=== PATIENT | male | born 1960 | race Caucasian/White ===

== ENCOUNTER 2017-07-04 23:03 | Inpatient (IN) | payer MEDICAID ==
[2017-07-04] MEDS ORDERED: PROPOFOL 100 ML (23:15)
[2017-07-04] MEDS: ETOMIDATE 20 MG INJ IV (23:22)
[2017-07-04] MEDS: SUCCINYLCHOLINE CHLORIDE 100 MG/5 ML SYG IV (23:22)
[2017-07-04] MEDS: SODIUM CHLORIDE 0.9% 500 ML BAG IV* (23:25)
[2017-07-04] MEDS ORDERED: AMIODARONE 900 MG in DEXTROSE 5% 482 ML IV (23:30)
[2017-07-04] MEDS: VECURONIUM 100 MG in DEXTROSE 5% 100 ML IV (23:35)
[2017-07-04] MEDS: AMIODARONE 150MG/D5W BOLUS 100 ML IV (23:35)
[2017-07-04 23:56] LABS: ADD MAN DIFF? NO
[2017-07-04 23:59] LABS: WHITE BLOOD COUNT 19.6 10^3/ul (4.8-10.8)
[2017-07-04 23:59] LABS: BASOPHIL # 0.1 10^3/ul (0.0-0.1); BASOPHILS % 0.3 % (0.0-2.0); EOSINOPHILS # 0.5 10^3/ul (0.0-0.5); EOSINOPHILS % 2.3 % (0.0-7.0); HEMATOCRIT 39.5 % (42.0-52.0); LYMPHOCYTES # 2.5 10^3/ul (0.8-2.9); LYMPHOCYTES % 12.7 % (15.0-51.0); MEAN CORPUSCULAR HEMOGLOBIN 31.5 pg (29.0-33.0); MEAN CORPUSCULAR HGB CONC 32.9 g/dl (32.0-37.0); MEAN CORPUSCULAR VOLUME 95.6 fl (82.0-101.0); MEAN PLATELET VOLUME 9.7 fl (7.4-10.4); MONOCYTE # 0.8 10^3/ul (0.3-0.9); MONOCYTES % 3.8 % (0.0-11.0); NEUTROPHIL # 15.5 10^3/ul (1.6-7.5); NEUTROPHILS % 79.3 % (39.0-77.0); PLATELET COUNT 261 10^3/UL (140-415); RED BLOOD COUNT 4.13 10^6/ul (4.70-6.10); RED CELL DISTRIBUTION WIDTH 13.2 % (11.5-14.5)
[2017-07-05] MEDS ORDERED: NORepinephrine 8MG/250 ML BAG
[2017-07-05] MEDS ORDERED: AMIODARONE 150 MG INJ
[2017-07-05] MEDS ORDERED: ETOMIDATE 20 MG INJ
[2017-07-05] MEDS ORDERED: DEXTROSE 5% WATER 500 ML BAG
[2017-07-05] MEDS ORDERED: AMIODARONE 900 MG INJ
[2017-07-05] MEDS ORDERED: ROCURONIUM 50 MG INJ
[2017-07-05] MEDS ORDERED: SUCCINYLCHOLINE CHLORIDE 100 MG/5 ML SYG IV
[2017-07-05 00:19] LABS: ALANINE AMINOTRANSFERASE 159 IU/L (13-69); ALBUMIN 3.8 g/dl (3.3-4.9); ALBUMIN/GLOBULIN RATIO 1.22; ALKALINE PHOSPHATASE 60 IU/L (42-121); ANION GAP 17 (8-16); ASPARTATE AMINO TRANSFERASE 162 IU/L (15-46); BILIRUBIN,INDIRECT 0.2 mg/dl (0-1.1); BILIRUBIN,TOTAL 0.2 mg/dl (0.2-1.3); BLOOD UREA NITROGEN 15 mg/dl (7-20); CALCIUM 8.5 mg/dl (8.4-10.2); CARBON DIOXIDE 21 mmol/L (21-31); CHLORIDE 106 mmol/L (97-110); GLUCOSE 195 mg/dl (70-220); MAGNESIUM 1.9 mg/dl (1.7-2.5); PHOSPHORUS 7.3 mg/dl (2.5-4.9); POTASSIUM 3.5 mmol/L (3.5-5.1); SODIUM 140 mmol/L (135-144); TOTAL PROTEIN 6.9 g/dl (6.1-8.1)
[2017-07-05] MEDS: PROPOFOL 100 ML IV ×4 (00:27→20:28)
[2017-07-05] MEDS: SOD CHLORIDE 0.9% 100 ML (00:27)
[2017-07-05] MEDS: IOHEXOL 300MG/ML 150 ML BTL (00:27)
[2017-07-05] MEDS: SOD CHLORIDE 0.9% 1,000 ML IV ×3 (00:30→19:02)
[2017-07-05 00:37] LABS: INR 1.17; PROTIME 15.1 Sec (11.9-14.9); PT RATIO 1.2
[2017-07-05 00:38] LABS: PARTIAL THROMBOPLASTIN TIME 31.3 Sec (25.0-35.0)
[2017-07-05 01:38] LABS: ADD UMIC YES; UR AMORPHOUS CRYSTAL FEW /HPF (NONE SEEN); UR ASCORBIC ACID NEGATIVE (NEGATIVE); UR BACTERIA FEW /HPF (NONE SEEN); UR BILIRUBIN (Dip) NEGATIVE (NEGATIVE); UR BLOOD (Dip) 1+ mg/dL (NEGATIVE); UR CLARITY CLOUDY (CLEAR); UR COLOR YELLOW (YELLOW); UR GLUCOSE (Dip) NEGATIVE (NEGATIVE); UR KETONES (Dip) NEGATIVE (NEGATIVE); UR LEUKOCYTE ESTERASE (Dip) NEGATIVE Leu/ul (NEGATIVE); UR MUCUS MODERATE /HPF (NONE SEEN); UR NITRITE (Dip) NEGATIVE (NEGATIVE); UR RBC 17 /HPF (0-5); UR SPECIFIC GRAVITY (Dip) 1.019 (1.003-1.030); UR TOTAL PROTEIN (Dip) 2+ mg/dl (NEGATIVE); UR UROBILINOGEN (Dip) NEGATIVE (NEGATIVE); UR WBC 1 /HPF (0-5)
[2017-07-05 01:39] LABS: AADO2 Arterial 271.9 mmHg (7.0-24.0); Allen Test ACCEPTAB; Arterial Base Excess -6.7 mmol/L (-3.0-3); Arterial Blood Gas Oxygen Sat 97.2 mmHG (95.0-98.0); Arterial COHb 0.5 % (0.0-3.0); Arterial Fraction of Oxyhgb 96.6 % (93.0-99.0); Arterial MetHb 0.1 % (0.0-1.5); Arterial Total Hemglobin 14.1 g/dl (12.0-18.0); Arterial pCO2 44.2 mmhg (35-45); MODE VENT - VC+; Site Right Radial
[2017-07-05] MEDS: INSULIN HUMAN REGULAR 100 UNIT in SOD CHLORIDE 0.9% 99 ML IV ×2 (02:06→06:51)
[2017-07-05 03:10] LABS: AADO2 Arterial 250.7 mmHg (7.0-24.0); Arterial Base Excess -4.2 mmol/L (-3.0-3); Arterial Blood Gas Oxygen Sat 98.1 mmHG (95.0-98.0); Arterial COHb 0.6 % (0.0-3.0); Arterial Fraction of Oxyhgb 97.2 % (93.0-99.0); Arterial HCO3 24.6 mmol/L (22.0-26.0); Arterial MetHb 0.3 % (0.0-1.5); Arterial Total Hemglobin 16.2 g/dl (12.0-18.0); Arterial pCO2 53.7 mmhg (35-45); MODE VENT - AC/VC+; Site Right Brachial; Temperature 34.5 C
[2017-07-05] MEDS: ASPIRIN 300 MG SUPP PR (03:10)
[2017-07-05 03:23] LABS: MAGNESIUM 1.9 mg/dl (1.7-2.5)
[2017-07-05] MEDS: HEPARIN 5,000 UNIT/0.5 ML VIAL IV (03:23)
[2017-07-05] MEDS ORDERED: NITROGLYCERIN (IC) 100 MCG/ML INJ (03:24)
[2017-07-05] MEDS ORDERED: LIDOCAINE 1% (MDV) 20 ML INJ (03:24)
[2017-07-05] MEDS ORDERED: MIDAZOLAM 1 MG/ML 2 ML INJ (03:24)
[2017-07-05] MEDS ORDERED: FENTAnyl 50 MCG/ML VIAL (03:24)
[2017-07-05] MEDS ORDERED: IODIXANOL LOCM 100 ML BTL ×2 (03:24→04:47)
[2017-07-05] MEDS ORDERED: VERAPAMIL 5 MG INJ (03:24)
[2017-07-05] MEDS: hydrALAzine 20 MG INJ IV (03:25)
[2017-07-05 03:32] LABS: ADD MAN DIFF? NO
[2017-07-05 03:45] LABS: CREATINE KINASE 1082 IU/L (23-200)
[2017-07-05 03:47] LABS: CARBON DIOXIDE 23 mmol/L (21-31); CHLORIDE 104 mmol/L (97-110)
[2017-07-05 03:48] LABS: ALANINE AMINOTRANSFERASE 174 IU/L (13-69); ALBUMIN 4.5 g/dl (3.3-4.9); ALBUMIN/GLOBULIN RATIO 1.45; ALKALINE PHOSPHATASE 81 IU/L (42-121); ANION GAP 20 (8-16); ASPARTATE AMINO TRANSFERASE 227 IU/L (15-46); BILIRUBIN,INDIRECT 0.4 mg/dl (0-1.1); BILIRUBIN,TOTAL 0.4 mg/dl (0.2-1.3); GLUCOSE 186 mg/dl (70-220); TOTAL PROTEIN 7.6 g/dl (6.1-8.1)
[2017-07-05 03:57] LABS: BLOOD UREA NITROGEN 14 mg/dl (7-20); CALCIUM 8.4 mg/dl (8.4-10.2); CREATININE 0.91 mg/dl (0.61-1.24); POTASSIUM 3.8 mmol/L (3.5-5.1); SODIUM 143 mmol/L (135-144)
[2017-07-05 03:58] LABS: CK INDEX 8.6
[2017-07-05 04:09] LABS: WHITE BLOOD COUNT 15.1 10^3/ul (4.8-10.8)
[2017-07-05 04:09] LABS: BASOPHIL # 0.1 10^3/ul (0.0-0.1); BASOPHILS % 0.3 % (0.0-2.0); EOSINOPHILS # 0.2 10^3/ul (0.0-0.5); EOSINOPHILS % 1.3 % (0.0-7.0); HEMATOCRIT 45.2 % (42.0-52.0); HEMOGLOBIN 14.9 g/dl (14.0-18.0); LYMPHOCYTES # 1.9 10^3/ul (0.8-2.9); LYMPHOCYTES % 12.6 % (15.0-51.0); MEAN CORPUSCULAR HEMOGLOBIN 31.6 pg (29.0-33.0); MEAN CORPUSCULAR VOLUME 95.8 fl (82.0-101.0); MEAN PLATELET VOLUME 10.1 fl (7.4-10.4); MONOCYTE # 0.7 10^3/ul (0.3-0.9); MONOCYTES % 4.8 % (0.0-11.0); NEUTROPHIL # 12.1 10^3/ul (1.6-7.5); NEUTROPHILS % 80.3 % (39.0-77.0); PLATELET COUNT 294 10^3/UL (140-415); RED BLOOD COUNT 4.72 10^6/ul (4.70-6.10); RED CELL DISTRIBUTION WIDTH 13.4 % (11.5-14.5)
[2017-07-05 04:20] LABS: AADO2 Arterial 225.9 mmHg (7.0-24.0); Arterial Base Excess -6.1 mmol/L (-3.0-3); Arterial Blood Gas Oxygen Sat 98.4 mmHG (95.0-98.0); Arterial COHb 0.4 % (0.0-3.0); Arterial Fraction of Oxyhgb 97.7 % (93.0-99.0); Arterial HCO3 21.5 mmol/L (22.0-26.0); Arterial MetHb 0.3 % (0.0-1.5); Arterial Total Hemglobin 15.9 g/dl (12.0-18.0); Arterial pCO2 50.2 mmhg (35-45); MODE VENT - AC/VC+; Site A-Line
[2017-07-05] MEDS ORDERED: TICAGRELOR 90 MG TABLET (04:33)
[2017-07-05] MEDS: EPTIFIBATIDE 100 ML IV (04:42)
[2017-07-05] MEDS ORDERED: NA BICARBONATE 8.4% 50 ML SYG (04:47)
[2017-07-05] MEDS ORDERED: IOHEXOL 350MG/ML 50 ML BTL (04:47)
[2017-07-05 04:49] LABS: AADO2 Arterial 256.4 mmHg (7.0-24.0); Arterial Base Excess 1.6 mmol/L (-3.0-3); Arterial Blood Gas Oxygen Sat 97.6 mmHG (95.0-98.0); Arterial COHb 0.3 % (0.0-3.0); Arterial Fraction of Oxyhgb 97.1 % (93.0-99.0); Arterial HCO3 27.8 mmol/L (22.0-26.0); Arterial MetHb 0.2 % (0.0-1.5); Arterial Total Hemglobin 14.3 g/dl (12.0-18.0); Arterial pCO2 49.6 mmhg (35-45); MODE VENT - AC; Site A-Line
[2017-07-05] MEDS ORDERED: DOPamine-D5W 1.6 MG/ML 250 ML (05:46)
[2017-07-05] MEDS ORDERED: PANTOPRAZOLE 40 MG INJ IV (06:00)
[2017-07-05] MEDS ORDERED: NORepinephrine 8MG/250 ML (PMX 250 ML (06:16)
[2017-07-05] MEDS: SOD CHLORIDE 0.9% 500 ML IV ×2 (06:33→11:06)
[2017-07-05] MEDS: TICAGRELOR 90 MG TABLET PO ×4 (06:35→21:05)
[2017-07-05] MEDS ORDERED: EPTIFIBATIDE 100 ML IV (06:39)
[2017-07-05] MEDS ORDERED: EPTIFIBATIDE 10 ML (06:39)
[2017-07-05] MEDS: PANTOPRAZOLE 40 MG INJ IV ×2 (06:43→18:16)
[2017-07-05] MEDS: MAGNESIUM SULFATE 2 GM/50 ML 50 ML IVPB (06:46)
[2017-07-05 06:58] LABS: PROTIME 15.4 Sec (11.9-14.9); PT RATIO 1.2
[2017-07-05] MEDS ORDERED: DEXTROSE 50% 50 ML SYRINGE IV ×2 (07:00)
[2017-07-05] MEDS: ACCU-CHEK XX ×17 (07:11→23:00)
[2017-07-05 07:25] LABS: PARTIAL THROMBOPLASTIN TIME 136.5 Sec (25.0-35.0)
[2017-07-05] MEDS: NORepinephrine 8MG/250 ML (PMX 250 ML IV (07:26)
[2017-07-05 09:30] LABS: AADO2 Arterial 176.2 mmHg (7.0-24.0); Arterial Base Excess -3.6 mmol/L (-3.0-3); Arterial Blood Gas Oxygen Sat 99.1 mmHG (95.0-98.0); Arterial COHb 0.3 % (0.0-3.0); Arterial Fraction of Oxyhgb 98.7 % (93.0-99.0); Arterial MetHb 0.1 % (0.0-1.5); Arterial Total Hemglobin 14.8 g/dl (12.0-18.0); Arterial pCO2 36.4 mmhg (35-45); MODE VENT - AC; Site A-Line; Temperature 33.7 C
[2017-07-05] MEDS ORDERED: ATROPINE 1 MG/10 ML SYRINGE (09:30)
[2017-07-05] MEDS: ASPIRIN (EC) 81 MG TAB PO (10:08)
[2017-07-05 10:51] LABS: ADD MAN DIFF? NO
[2017-07-05 10:54] LABS: WHITE BLOOD COUNT 10.2 10^3/ul (4.8-10.8)
[2017-07-05 10:54] LABS: BASOPHILS % 0.2 % (0.0-2.0); EOSINOPHILS # 0.1 10^3/ul (0.0-0.5); EOSINOPHILS % 0.8 % (0.0-7.0); HEMATOCRIT 38.9 % (42.0-52.0); HEMOGLOBIN 13.5 g/dl (14.0-18.0); LYMPHOCYTES # 1.3 10^3/ul (0.8-2.9); LYMPHOCYTES % 12.5 % (15.0-51.0); MEAN CORPUSCULAR HEMOGLOBIN 31.8 pg (29.0-33.0); MEAN CORPUSCULAR HGB CONC 34.7 g/dl (32.0-37.0); MEAN CORPUSCULAR VOLUME 91.7 fl (82.0-101.0); MEAN PLATELET VOLUME 9.8 fl (7.4-10.4); MONOCYTE # 0.6 10^3/ul (0.3-0.9); MONOCYTES % 5.4 % (0.0-11.0); NEUTROPHIL # 8.3 10^3/ul (1.6-7.5); NEUTROPHILS % 80.9 % (39.0-77.0); PLATELET COUNT 261 10^3/UL (140-415); RED BLOOD COUNT 4.24 10^6/ul (4.70-6.10); RED CELL DISTRIBUTION WIDTH 13.5 % (11.5-14.5)
[2017-07-05 11:13] LABS: INR 1.09; PROTIME 14.3 Sec (11.9-14.9); PT RATIO 1.1
[2017-07-05 11:20] LABS: LACTIC ACID 3.3 mmol/L (0.5-2.0)
[2017-07-05 11:23] LABS: ALANINE AMINOTRANSFERASE 170 IU/L (13-69); ALBUMIN 3.4 g/dl (3.3-4.9); ASPARTATE AMINO TRANSFERASE 509 IU/L (15-46); BILIRUBIN,INDIRECT 0.3 mg/dl (0-1.1); BILIRUBIN,TOTAL 0.3 mg/dl (0.2-1.3); BLOOD UREA NITROGEN 15 mg/dl (7-20); CARBON DIOXIDE 21 mmol/L (21-31); CHLORIDE 109 mmol/L (97-110); GLUCOSE 126 mg/dl (70-220); HDL CHOLESTEROL 54 mg/dl (28-71); MAGNESIUM 3.1 mg/dl (1.7-2.5); SODIUM 141 mmol/L (135-144)
[2017-07-05 11:26] LABS: ALBUMIN/GLOBULIN RATIO 1.41; ALKALINE PHOSPHATASE 66 IU/L (42-121); ANION GAP 15 (8-16); CHOL/HDL RATIO 4.1 RATIO; CHOLESTEROL 226 mg/dl (100-200); CREATININE 0.61 mg/dl (0.61-1.24); LDL CHOLESTEROL,CALCULATED 126 mg/dl; POTASSIUM 3.6 mmol/L (3.5-5.1); TOTAL PROTEIN 5.8 g/dl (6.1-8.1); TRIGLYCERIDES 232 mg/dl (0-149)
[2017-07-05 11:46] LABS: CK-MB > 800.00 ng/ml (0.0-2.4)
[2017-07-05 12:12] LABS: CREATINE KINASE 7570 IU/L (23-200)
[2017-07-05] MEDS: FENTAnyl (DRIP) 1000 mcg/100mL 100 ML IV (15:18)
[2017-07-05 18:16] LABS: AADO2 Arterial 179.2 mmHg (7.0-24.0); Allen Test ACCEPTAB; Arterial Base Excess -5.5 mmol/L (-3.0-3); Arterial Blood Gas Oxygen Sat 97.2 mmHG (95.0-98.0); Arterial COHb 0.3 % (0.0-3.0); Arterial Fraction of Oxyhgb 96.8 % (93.0-99.0); Arterial HCO3 19.5 mmol/L (22.0-26.0); Arterial MetHb 0.1 % (0.0-1.5); Arterial Total Hemglobin 14.1 g/dl (12.0-18.0); Arterial pCO2 29.5 mmhg (35-45); MODE VENT - AC; Site Right Radial; Temperature 32.1 C
[2017-07-05 20:16] LABS: ADD MAN DIFF? NO
[2017-07-05 20:19] LABS: BASOPHILS % 0.2 % (0.0-2.0); EOSINOPHILS % 0.2 % (0.0-7.0); HEMATOCRIT 42.3 % (42.0-52.0); HEMOGLOBIN 14.2 g/dl (14.0-18.0); LYMPHOCYTES # 0.8 10^3/ul (0.8-2.9); LYMPHOCYTES % 6.1 % (15.0-51.0); MEAN CORPUSCULAR HEMOGLOBIN 31.5 pg (29.0-33.0); MEAN CORPUSCULAR HGB CONC 33.6 g/dl (32.0-37.0); MEAN CORPUSCULAR VOLUME 93.8 fl (82.0-101.0); MEAN PLATELET VOLUME 9.9 fl (7.4-10.4); MONOCYTES % 7.7 % (0.0-11.0); NEUTROPHILS % 85.4 % (39.0-77.0); PLATELET COUNT 238 10^3/UL (140-415); RED BLOOD COUNT 4.51 10^6/ul (4.70-6.10); RED CELL DISTRIBUTION WIDTH 13.5 % (11.5-14.5)
[2017-07-05 20:19] LABS: WHITE BLOOD COUNT 12.9 10^3/ul (4.8-10.8)
[2017-07-05 20:41] LABS: INR 1.03; PARTIAL THROMBOPLASTIN TIME 30.9 Sec (25.0-35.0); PROTIME 13.6 Sec (11.9-14.9); PT RATIO 1.1
[2017-07-05 21:21] LABS: AMYLASE 98 U/L (11-123); ANION GAP 8 (8-16); BLOOD UREA NITROGEN 15 mg/dl (7-20); CALCIUM 8.2 mg/dl (8.4-10.2); CARBON DIOXIDE 26 mmol/L (21-31); CHLORIDE 107 mmol/L (97-110); CREATININE 0.62 mg/dl (0.61-1.24); GLUCOSE 131 mg/dl (70-220); LIPASE 21 U/L (23-300); MAGNESIUM 2.3 mg/dl (1.7-2.5); PHOSPHORUS 3.7 mg/dl (2.5-4.9); POTASSIUM 3.4 mmol/L (3.5-5.1); SODIUM 138 mmol/L (135-144)
[2017-07-05 21:59] LABS: HEMOGLOBIN A1C 5.8 % (0-5.9)
[2017-07-05] MEDS: MEPERIDINE 25 MG INJ IV (23:19)
[2017-07-05] MEDS ORDERED: ACETAMINOPHEN 650MG/20.3ML CUP PO (23:30)
[2017-07-05] MEDS ORDERED: MEPERIDINE 25 MG INJ IV (23:30)
[2017-07-05] MEDS ORDERED: ACETAMINOPHEN 650 MG SUPP PR (23:30)
[2017-07-05 23:59] LABS: CREATINE KINASE 8762 IU/L (23-200)
[2017-07-05 23:59] LABS: CK-MB > 800.00 ng/ml (0.0-2.4)
[2017-07-06] MEDS: OCULAR LUBRICANT 3.5 GM OPH OINT BOTH EYES ×5 (00:11→17:16)
[2017-07-06] MEDS: ARTIFICIAL TEARS 15 ML OPH BOTH EYES ×4 (00:11→17:15)
[2017-07-06] MEDS: ACCU-CHEK XX ×21 (01:00→20:00)
[2017-07-06] MEDS: PROPOFOL 100 ML IV ×5 (01:05→20:16)
[2017-07-06] MEDS: SOD CHLORIDE 0.9% 1,000 ML IV ×3 (03:05→18:21)
[2017-07-06] MEDS: EPTIFIBATIDE 100 ML IV (03:37)
[2017-07-06 04:40] LABS: AADO2 Arterial 169.8 mmHg (7.0-24.0); Allen Test ACCEPTAB; Arterial Blood Gas Oxygen Sat 97.7 mmHG (95.0-98.0); Arterial COHb 0.3 % (0.0-3.0); Arterial Fraction of Oxyhgb 97.3 % (93.0-99.0); Arterial HCO3 20.1 mmol/L (22.0-26.0); Arterial MetHb 0.1 % (0.0-1.5); Arterial Total Hemglobin 13.5 g/dl (12.0-18.0); Arterial pCO2 30.2 mmhg (35-45); MODE VENT - AC; Site Right Radial; Temperature 32.1 C
[2017-07-06] MEDS: PANTOPRAZOLE 40 MG INJ IV ×2 (05:03→17:19)
[2017-07-06 05:12] LABS: ADD MAN DIFF? NO
[2017-07-06 05:15] LABS: BASOPHILS % 0.2 % (0.0-2.0); EOSINOPHILS % 0.4 % (0.0-7.0); HEMATOCRIT 36.1 % (42.0-52.0); HEMOGLOBIN 12.1 g/dl (14.0-18.0); LYMPHOCYTES # 0.7 10^3/ul (0.8-2.9); LYMPHOCYTES % 7.3 % (15.0-51.0); MEAN CORPUSCULAR HEMOGLOBIN 31.3 pg (29.0-33.0); MEAN CORPUSCULAR HGB CONC 33.5 g/dl (32.0-37.0); MEAN CORPUSCULAR VOLUME 93.3 fl (82.0-101.0); MEAN PLATELET VOLUME 10.1 fl (7.4-10.4); MONOCYTE # 0.4 10^3/ul (0.3-0.9); MONOCYTES % 3.8 % (0.0-11.0); NEUTROPHIL # 8.5 10^3/ul (1.6-7.5); PLATELET COUNT 223 10^3/UL (140-415); POSITIVE DIFF @See below; RED BLOOD COUNT 3.87 10^6/ul (4.70-6.10); RED CELL DISTRIBUTION WIDTH 13.3 % (11.5-14.5)
[2017-07-06 05:15] LABS: WHITE BLOOD COUNT 9.7 10^3/ul (4.8-10.8)
[2017-07-06] MEDS: FENTAnyl (DRIP) 1000 mcg/100mL 100 ML IV ×2 (06:33→17:23)
[2017-07-06] MEDS: INSULIN HUMAN REGULAR 100 UNIT in SOD CHLORIDE 0.9% 99 ML IV (07:04)
[2017-07-06 07:21] LABS: ALANINE AMINOTRANSFERASE 169 IU/L (13-69); ALBUMIN 3.3 g/dl (3.3-4.9); ALBUMIN/GLOBULIN RATIO 1.26; ALKALINE PHOSPHATASE 58 IU/L (42-121); ANION GAP 12 (8-16); ASPARTATE AMINO TRANSFERASE 489 IU/L (15-46); B-TYPE NATRIURETIC PEPTIDE 1320 PG/ML (0-125); BILIRUBIN,INDIRECT 0.3 mg/dl (0-1.1); BILIRUBIN,TOTAL 0.3 mg/dl (0.2-1.3); BLOOD UREA NITROGEN 15 mg/dl (7-20); CARBON DIOXIDE 25 mmol/L (21-31); CHLORIDE 108 mmol/L (97-110); CHOL/HDL RATIO 3.7 RATIO; CHOLESTEROL 182 mg/dl (100-200); CREATININE 0.65 mg/dl (0.61-1.24); GLUCOSE 111 mg/dl (70-220); HDL CHOLESTEROL 48 mg/dl (28-71); LDL CHOLESTEROL,CALCULATED 102 mg/dl; POTASSIUM 3.5 mmol/L (3.5-5.1); SODIUM 141 mmol/L (135-144); TOTAL PROTEIN 5.9 g/dl (6.1-8.1); TRIGLYCERIDES 161 mg/dl (0-149)
[2017-07-06 07:48] LABS: FREE T4 (FREE THYROXINE) 1.49 ng/dl (0.64-1.79)
[2017-07-06 07:55] LABS: MAGNESIUM 2.2 mg/dl (1.7-2.5)
[2017-07-06] MEDS: ASPIRIN (EC) 81 MG TAB PO (08:12)
[2017-07-06] MEDS: TICAGRELOR 90 MG TABLET PO ×2 (08:14→20:36)
[2017-07-06 08:15] LABS: Arterial Base Excess -2.6 mmol/L (-3.0-3); Arterial COHb 0.3 % (0.0-3.0); Arterial Fraction of Oxyhgb 95.5 % (93.0-99.0); Arterial HCO3 22.6 mmol/L (22.0-26.0); Arterial MetHb 0.2 % (0.0-1.5); Arterial Total Hemglobin 12.6 g/dl (12.0-18.0); MODE VENT - AC; Site Right Brachial; Temperature 34.3 C
[2017-07-06] MEDS: MEPERIDINE 25 MG INJ IV ×2 (08:21→12:52)
[2017-07-06 08:24] LABS: CREATINE KINASE 8873 IU/L (23-200)
[2017-07-06 08:29] LABS: CK-MB > 800.00 ng/ml (0.0-2.4)
[2017-07-06] MEDS: VECURONIUM 10 MG VIAL IV ×2 (10:00→10:27)
[2017-07-06] MEDS: ENOXAPARIN 80 MG/0.8 ML SYG SC ×2 (10:04→20:36)
[2017-07-06 12:28] LABS: ADD MAN DIFF? NO
[2017-07-06 12:31] LABS: ABNORMAL IP MESSAGE 1; BASOPHILS % 0.2 % (0.0-2.0); EOSINOPHILS # 0.1 10^3/ul (0.0-0.5); EOSINOPHILS % 0.8 % (0.0-7.0); HEMATOCRIT 34.1 % (42.0-52.0); HEMOGLOBIN 11.6 g/dl (14.0-18.0); LYMPHOCYTES # 0.5 10^3/ul (0.8-2.9); LYMPHOCYTES % 5.8 % (15.0-51.0); MEAN CORPUSCULAR HEMOGLOBIN 31.8 pg (29.0-33.0); MEAN CORPUSCULAR VOLUME 93.4 fl (82.0-101.0); MONOCYTE # 0.2 10^3/ul (0.3-0.9); NEUTROPHIL # 8.2 10^3/ul (1.6-7.5); PLATELET COUNT 180 10^3/UL (140-415); POSITIVE DIFF @See below; RED BLOOD COUNT 3.65 10^6/ul (4.70-6.10); RED CELL DISTRIBUTION WIDTH 13.5 % (11.5-14.5)
[2017-07-06] MEDS: CEFEPIME 1GM/50 ML (PMX) 50 ML IVPB ×2 (12:42→22:27)
[2017-07-06 12:50] LABS: AMYLASE 153 U/L (11-123); ANION GAP 11 (8-16); BLOOD UREA NITROGEN 14 mg/dl (7-20); CALCIUM 7.9 mg/dl (8.4-10.2); CARBON DIOXIDE 24 mmol/L (21-31); CHLORIDE 107 mmol/L (97-110); CREATININE 0.64 mg/dl (0.61-1.24); GLUCOSE 106 mg/dl (70-220); LIPASE 86 U/L (23-300); PHOSPHORUS 3.9 mg/dl (2.5-4.9); POTASSIUM 3.2 mmol/L (3.5-5.1); SODIUM 139 mmol/L (135-144)
[2017-07-06 12:58] LABS: INR 1.27; PROTIME 16.1 Sec (11.9-14.9); PT RATIO 1.3
[2017-07-06 12:59] LABS: PARTIAL THROMBOPLASTIN TIME 47.3 Sec (25.0-35.0)
[2017-07-06 13:04] LABS: BAND NEUTROPHILS #M 2.3 10^3/ul (0.0-0.6); BAND NEUTROPHILS % (M) 26 % (0-4); LYMPHOCYTES #M 2.1 10^3/ul (0.8-2.9); LYMPHOCYTES % (M) 24 % (15-51); MONOCYTE #M 0.1 10^3/ul (0.3-0.9); MONOCYTES % (M) 2 % (0-11); PLATELET ESTIMATE NORMAL; SEG NEUT #M 4.5 10^3/ul (1.7-7.5); SEGMENTED NEUTROPHILS (M) % 48 % (39-77); SMUDGE%M 7 % (0-0)
[2017-07-06] MEDS: ACETAMINOPHEN 650MG/20.3ML CUP PO ×2 (13:25→18:16)
[2017-07-06 15:10] LABS: AADO2 Arterial 159.9 mmHg (7.0-24.0); Allen Test ACCEPTAB; Arterial Base Excess -4.4 mmol/L (-3.0-3); Arterial Blood Gas Oxygen Sat 94.4 mmHG (95.0-98.0); Arterial COHb 0.3 % (0.0-3.0); Arterial HCO3 21.2 mmol/L (22.0-26.0); Arterial MetHb 0.1 % (0.0-1.5); Arterial Total Hemglobin 12.5 g/dl (12.0-18.0); Arterial pCO2 40.5 mmhg (35-45); MODE VENT - AC; Site Right Radial
[2017-07-06 18:27] LABS: ADD MAN DIFF? NO
[2017-07-06 18:29] LABS: WHITE BLOOD COUNT 8.9 10^3/ul (4.8-10.8)
[2017-07-06 18:29] LABS: BASOPHILS % 0.3 % (0.0-2.0); EOSINOPHILS # 0.1 10^3/ul (0.0-0.5); EOSINOPHILS % 0.7 % (0.0-7.0); HEMATOCRIT 34.8 % (42.0-52.0); HEMOGLOBIN 11.7 g/dl (14.0-18.0); LYMPHOCYTES # 0.6 10^3/ul (0.8-2.9); LYMPHOCYTES % 6.7 % (15.0-51.0); MEAN CORPUSCULAR HEMOGLOBIN 31.9 pg (29.0-33.0); MEAN CORPUSCULAR HGB CONC 33.6 g/dl (32.0-37.0); MEAN CORPUSCULAR VOLUME 94.8 fl (82.0-101.0); MEAN PLATELET VOLUME 10.3 fl (7.4-10.4); MONOCYTE # 0.3 10^3/ul (0.3-0.9); MONOCYTES % 3.4 % (0.0-11.0); NEUTROPHIL # 7.9 10^3/ul (1.6-7.5); NEUTROPHILS % 88.7 % (39.0-77.0); PLATELET COUNT 189 10^3/UL (140-415); POSITIVE DIFF @See below; RED BLOOD COUNT 3.67 10^6/ul (4.70-6.10); RED CELL DISTRIBUTION WIDTH 13.6 % (11.5-14.5)
[2017-07-06 18:49] LABS: AMYLASE 150 U/L (11-123); ANION GAP 12 (8-16); BLOOD UREA NITROGEN 14 mg/dl (7-20); CALCIUM 7.7 mg/dl (8.4-10.2); CARBON DIOXIDE 23 mmol/L (21-31); CHLORIDE 107 mmol/L (97-110); GLUCOSE 105 mg/dl (70-220); LIPASE 52 U/L (23-300); MAGNESIUM 1.9 mg/dl (1.7-2.5); PHOSPHORUS 4.5 mg/dl (2.5-4.9); POTASSIUM 4.6 mmol/L (3.5-5.1); SODIUM 137 mmol/L (135-144)
[2017-07-06 19:13] LABS: INR 1.24; PROTIME 15.8 Sec (11.9-14.9); PT RATIO 1.2
[2017-07-06 19:14] LABS: PARTIAL THROMBOPLASTIN TIME 37.6 Sec (25.0-35.0)
[2017-07-06] MEDS: LORAZEPAM 2 MG INJ IV (22:27)
[2017-07-06] MEDS ORDERED: ACETAMINOPHEN 650 MG SUPP PR (23:30)
[2017-07-07] MEDS: PROPOFOL 100 ML IV ×4 (01:01→20:23)
[2017-07-07] MEDS: FENTAnyl (DRIP) 1000 mcg/100mL 100 ML IV ×2 (04:13→09:20)
[2017-07-07 05:08] LABS: ADD MAN DIFF? NO
[2017-07-07] MEDS: SOD CHLORIDE 0.9% 1,000 ML IV ×2 (05:21→18:31)
[2017-07-07] MEDS: PANTOPRAZOLE 40 MG INJ IV ×2 (05:21→18:31)
[2017-07-07 05:22] LABS: ABNORMAL IP MESSAGE 1; BASOPHILS % 0.4 % (0.0-2.0); EOSINOPHILS # 0.1 10^3/ul (0.0-0.5); EOSINOPHILS % 0.6 % (0.0-7.0); HEMATOCRIT 30.9 % (42.0-52.0); HEMOGLOBIN 10.5 g/dl (14.0-18.0); LYMPHOCYTES # 0.8 10^3/ul (0.8-2.9); LYMPHOCYTES % 10.1 % (15.0-51.0); MEAN CORPUSCULAR HEMOGLOBIN 32.2 pg (29.0-33.0); MEAN CORPUSCULAR VOLUME 94.8 fl (82.0-101.0); MEAN PLATELET VOLUME 10.9 fl (7.4-10.4); MONOCYTE # 0.3 10^3/ul (0.3-0.9); MONOCYTES % 3.4 % (0.0-11.0); NEUTROPHIL # 6.9 10^3/ul (1.6-7.5); PLATELET COUNT 185 10^3/UL (140-415); POSITIVE DIFF @See below; RED BLOOD COUNT 3.26 10^6/ul (4.70-6.10); RED CELL DISTRIBUTION WIDTH 13.9 % (11.5-14.5)
[2017-07-07 05:22] LABS: WHITE BLOOD COUNT 8.1 10^3/ul (4.8-10.8)
[2017-07-07 06:07] LABS: ALANINE AMINOTRANSFERASE 121 IU/L (13-69); ALBUMIN 2.9 g/dl (3.3-4.9); ALBUMIN/GLOBULIN RATIO 1.03; ALKALINE PHOSPHATASE 61 IU/L (42-121); ANION GAP 9 (8-16); ASPARTATE AMINO TRANSFERASE 229 IU/L (15-46); BILIRUBIN,INDIRECT 0.2 mg/dl (0-1.1); BILIRUBIN,TOTAL 0.2 mg/dl (0.2-1.3); BLOOD UREA NITROGEN 12 mg/dl (7-20); CALCIUM 7.9 mg/dl (8.4-10.2); CARBON DIOXIDE 24 mmol/L (21-31); CHLORIDE 107 mmol/L (97-110); GLUCOSE 122 mg/dl (70-220); MAGNESIUM 1.8 mg/dl (1.7-2.5); POTASSIUM 3.3 mmol/L (3.5-5.1); SODIUM 137 mmol/L (135-144); TOTAL PROTEIN 5.7 g/dl (6.1-8.1)
[2017-07-07 06:15] LABS: B-TYPE NATRIURETIC PEPTIDE 1680 PG/ML (0-125)
[2017-07-07 06:49] LABS: CK INDEX 3.8; CREATINE KINASE 2500 IU/L (23-200)
[2017-07-07] MEDS: POTASSIUM CHLORIDE 20 MEQ POWDER FOR ORAL SOLN NGT (09:18)
[2017-07-07] MEDS: FUROSEMIDE 20 MG INJ IV (09:18)
[2017-07-07] MEDS: TICAGRELOR 90 MG TABLET PO ×2 (09:19→20:24)
[2017-07-07] MEDS: ASPIRIN (EC) 81 MG TAB PO (09:21)
[2017-07-07] MEDS: CEFEPIME 1GM/50 ML (PMX) 50 ML IVPB ×2 (09:21→20:23)
[2017-07-07] MEDS: ENOXAPARIN 80 MG/0.8 ML SYG SC ×2 (09:21→20:25)
[2017-07-07] MEDS: MAGNESIUM SULFATE 3 GM in DEXTROSE 5% 100 ML IVPB (10:33)
[2017-07-07] MEDS ORDERED: NORepinephrine 8MG/250 ML (PMX 250 ML (15:09)
[2017-07-07] MEDS: LORAZEPAM 2 MG INJ IV (15:47)
[2017-07-07] MEDS: ATORVASTATIN 20 MG TAB PO (20:23)
[2017-07-08] MEDS: SOD CHLORIDE 0.9% 1,000 ML IV (01:42)
[2017-07-08] MEDS: FENTAnyl (DRIP) 1000 mcg/100mL 100 ML IV ×2 (01:52→11:01)
[2017-07-08] MEDS: PANTOPRAZOLE 40 MG INJ IV ×2 (05:05→18:02)
[2017-07-08 05:23] LABS: ADD MAN DIFF? NO
[2017-07-08 05:27] LABS: WHITE BLOOD COUNT 7.4 10^3/ul (4.8-10.8)
[2017-07-08 05:27] LABS: BASOPHILS % 0.4 % (0.0-2.0); EOSINOPHILS # 0.2 10^3/ul (0.0-0.5); EOSINOPHILS % 2.4 % (0.0-7.0); HEMATOCRIT 27.7 % (42.0-52.0); HEMOGLOBIN 9.3 g/dl (14.0-18.0); LYMPHOCYTES # 0.7 10^3/ul (0.8-2.9); LYMPHOCYTES % 9.6 % (15.0-51.0); MEAN CORPUSCULAR HEMOGLOBIN 31.8 pg (29.0-33.0); MEAN CORPUSCULAR HGB CONC 33.6 g/dl (32.0-37.0); MEAN CORPUSCULAR VOLUME 94.9 fl (82.0-101.0); MEAN PLATELET VOLUME 10.6 fl (7.4-10.4); MONOCYTE # 0.4 10^3/ul (0.3-0.9); MONOCYTES % 5.3 % (0.0-11.0); NEUTROPHILS % 81.5 % (39.0-77.0); PLATELET COUNT 189 10^3/UL (140-415); RED BLOOD COUNT 2.92 10^6/ul (4.70-6.10); RED CELL DISTRIBUTION WIDTH 14.4 % (11.5-14.5)
[2017-07-08 05:53] LABS: ALANINE AMINOTRANSFERASE 83 IU/L (13-69); ALBUMIN 2.6 g/dl (3.3-4.9); ALBUMIN/GLOBULIN RATIO 1.13; ALKALINE PHOSPHATASE 72 IU/L (42-121); ANION GAP 10 (8-16); ASPARTATE AMINO TRANSFERASE 116 IU/L (15-46); BILIRUBIN,INDIRECT 0.4 mg/dl (0-1.1); BILIRUBIN,TOTAL 0.4 mg/dl (0.2-1.3); BLOOD UREA NITROGEN 13 mg/dl (7-20); CALCIUM 7.7 mg/dl (8.4-10.2); CARBON DIOXIDE 27 mmol/L (21-31); CHLORIDE 109 mmol/L (97-110); CREATINE KINASE 1207 IU/L (23-200); CREATININE 0.76 mg/dl (0.61-1.24); GLUCOSE 93 mg/dl (70-220); MAGNESIUM 2.4 mg/dl (1.7-2.5); POTASSIUM 3.6 mmol/L (3.5-5.1); SODIUM 142 mmol/L (135-144); TOTAL PROTEIN 4.9 g/dl (6.1-8.1)
[2017-07-08 06:00] LABS: B-TYPE NATRIURETIC PEPTIDE 1430 PG/ML (0-125)
[2017-07-08] MEDS: CEFEPIME 1GM/50 ML (PMX) 50 ML IVPB ×2 (09:44→20:14)
[2017-07-08] MEDS: ENOXAPARIN 40 MG/0.4 ML SYG SC (09:48)
[2017-07-08] MEDS: TICAGRELOR 90 MG TABLET PO ×2 (09:48→20:15)
[2017-07-08] MEDS: ASPIRIN (EC) 81 MG TAB PO (09:49)
[2017-07-08] MEDS: PROPOFOL 100 ML IV ×2 (12:35→20:17)
[2017-07-08] MEDS ORDERED: VANCOMYCIN IV PER PHARMACY XX (14:30)
[2017-07-08] MEDS: VANCOMYCIN 1.5 GM in DEXTROSE 5% 500 ML IVPB (15:47)
[2017-07-08] MEDS ORDERED: POTASSIUM CHLORIDE 40 MEQ in DEXTROSE 5% 250 ML IVPB (17:30)
[2017-07-08] MEDS: POTASSIUM CHLORIDE 40 MEQ in DEXTROSE 5% 250 ML IVPB (18:54)
[2017-07-08] MEDS: ACETAMINOPHEN 325 MG TAB PO (20:16)
[2017-07-08] MEDS: ATORVASTATIN 20 MG TAB PO (20:16)
[2017-07-09] MEDS: FENTAnyl (DRIP) 1000 mcg/100mL 100 ML IV ×2 (00:06→16:51)
[2017-07-09] MEDS: VANCOMYCIN 750 MG in DEXTROSE 5% 150 ML IVPB ×2 (01:02→08:28)
[2017-07-09] MEDS: PROPOFOL 100 ML IV ×3 (04:30→19:06)
[2017-07-09] MEDS: PANTOPRAZOLE 40 MG INJ IV ×2 (05:52→17:26)
[2017-07-09 06:28] LABS: ADD MAN DIFF? NO
[2017-07-09 06:33] LABS: BASOPHILS % 0.2 % (0.0-2.0); EOSINOPHILS # 0.3 10^3/ul (0.0-0.5); EOSINOPHILS % 3.3 % (0.0-7.0); HEMOGLOBIN 8.8 g/dl (14.0-18.0); LYMPHOCYTES # 0.7 10^3/ul (0.8-2.9); LYMPHOCYTES % 7.7 % (15.0-51.0); MEAN CORPUSCULAR HEMOGLOBIN 31.5 pg (29.0-33.0); MEAN CORPUSCULAR HGB CONC 33.8 g/dl (32.0-37.0); MEAN CORPUSCULAR VOLUME 93.2 fl (82.0-101.0); MEAN PLATELET VOLUME 10.1 fl (7.4-10.4); MONOCYTE # 0.7 10^3/ul (0.3-0.9); NEUTROPHIL # 7.2 10^3/ul (1.6-7.5); NEUTROPHILS % 80.4 % (39.0-77.0); PLATELET COUNT 190 10^3/UL (140-415); RED BLOOD COUNT 2.79 10^6/ul (4.70-6.10); RED CELL DISTRIBUTION WIDTH 14.3 % (11.5-14.5)
[2017-07-09 07:08] LABS: ALANINE AMINOTRANSFERASE 73 IU/L (13-69); ALBUMIN/GLOBULIN RATIO 1.03; ALKALINE PHOSPHATASE 95 IU/L (42-121); ANION GAP 11 (8-16); ASPARTATE AMINO TRANSFERASE 92 IU/L (15-46); BILIRUBIN,INDIRECT 0.5 mg/dl (0-1.1); BILIRUBIN,TOTAL 0.5 mg/dl (0.2-1.3); BLOOD UREA NITROGEN 10 mg/dl (7-20); CARBON DIOXIDE 27 mmol/L (21-31); CHLORIDE 103 mmol/L (97-110); CREATININE 0.77 mg/dl (0.61-1.24); GLUCOSE 113 mg/dl (70-220); MAGNESIUM 1.9 mg/dl (1.7-2.5); POTASSIUM 3.3 mmol/L (3.5-5.1); SODIUM 138 mmol/L (135-144); TOTAL PROTEIN 5.9 g/dl (6.1-8.1)
[2017-07-09] MEDS: ASPIRIN (EC) 81 MG TAB PO (08:28)
[2017-07-09] MEDS: TICAGRELOR 90 MG TABLET PO ×2 (08:29→20:16)
[2017-07-09] MEDS: ENOXAPARIN 40 MG/0.4 ML SYG SC (08:30)
[2017-07-09] MEDS: CEFEPIME 1GM/50 ML (PMX) 50 ML IVPB ×2 (08:40→20:15)
[2017-07-09] MEDS ORDERED: POTASSIUM CHLORIDE 40 MEQ in DEXTROSE 5% 250 ML IVPB (10:00)
[2017-07-09] MEDS: MAGNESIUM SULFATE 2 GM/50 ML 50 ML IVPB (10:19)
[2017-07-09] MEDS: POTASSIUM CHLORIDE 50 ML IVPB ×4 (10:19→13:21)
[2017-07-09] MEDS: VANCOMYCIN 1 GM 250 ML IVPB (16:40)
[2017-07-09] MEDS: ACETAMINOPHEN 325 MG TAB PO ×2 (20:18)
[2017-07-09] MEDS: ATORVASTATIN 20 MG TAB PO (20:18)
[2017-07-10] MEDS: PROPOFOL 100 ML IV ×4 (00:15→20:01)
[2017-07-10] MEDS: VANCOMYCIN 1 GM 250 ML IVPB ×3 (00:17→16:56)
[2017-07-10] MEDS: FENTAnyl (DRIP) 1000 mcg/100mL 100 ML IV ×2 (05:09→19:10)
[2017-07-10] MEDS: PANTOPRAZOLE 40 MG INJ IV ×2 (05:09→17:50)
[2017-07-10 08:10] LABS: ADD MAN DIFF? NO
[2017-07-10 08:13] LABS: WHITE BLOOD COUNT 8.2 10^3/ul (4.8-10.8)
[2017-07-10 08:13] LABS: BASOPHILS % 0.2 % (0.0-2.0); EOSINOPHILS # 0.5 10^3/ul (0.0-0.5); HEMATOCRIT 26.8 % (42.0-52.0); LYMPHOCYTES # 0.9 10^3/ul (0.8-2.9); LYMPHOCYTES % 10.6 % (15.0-51.0); MEAN CORPUSCULAR HEMOGLOBIN 31.4 pg (29.0-33.0); MEAN CORPUSCULAR HGB CONC 33.6 g/dl (32.0-37.0); MEAN CORPUSCULAR VOLUME 93.4 fl (82.0-101.0); MEAN PLATELET VOLUME 10.2 fl (7.4-10.4); MONOCYTE # 0.8 10^3/ul (0.3-0.9); MONOCYTES % 9.2 % (0.0-11.0); NEUTROPHILS % 73.1 % (39.0-77.0); PLATELET COUNT 199 10^3/UL (140-415); RED BLOOD COUNT 2.87 10^6/ul (4.70-6.10); RED CELL DISTRIBUTION WIDTH 14.4 % (11.5-14.5)
[2017-07-10 08:35] LABS: ANION GAP 15 (8-16); BLOOD UREA NITROGEN 13 mg/dl (7-20); CALCIUM 8.1 mg/dl (8.4-10.2); CARBON DIOXIDE 25 mmol/L (21-31); CHLORIDE 105 mmol/L (97-110); CREATININE 0.69 mg/dl (0.61-1.24); GLUCOSE 107 mg/dl (70-220); POTASSIUM 3.9 mmol/L (3.5-5.1); SODIUM 141 mmol/L (135-144)
[2017-07-10] MEDS: CEFEPIME 1GM/50 ML (PMX) 50 ML IVPB ×2 (09:31→20:44)
[2017-07-10] MEDS: ENOXAPARIN 40 MG/0.4 ML SYG SC (09:32)
[2017-07-10] MEDS: TICAGRELOR 90 MG TABLET PO ×2 (09:33→20:46)
[2017-07-10] MEDS: ASPIRIN 81 MG TAB NGT (10:20)
[2017-07-10] MEDS: ACETAMINOPHEN 325 MG TAB PO ×3 (10:21→20:45)
[2017-07-10] MEDS ORDERED: PENDING SANTYL ORDER FOR WOUND CARE XX (10:30)
[2017-07-10 17:41] LABS: PROCALCITONIN 1.68 ng/mL (<0.10)
[2017-07-10] MEDS: FUROSEMIDE 40 MG INJ IV (17:49)
[2017-07-10] MEDS: ATORVASTATIN 20 MG TAB PO (20:45)
[2017-07-11] MEDS: PROPOFOL 100 ML IV ×5 (00:07→22:12)
[2017-07-11] MEDS: VANCOMYCIN 1 GM 250 ML IVPB ×3 (00:08→17:28)
[2017-07-11] MEDS: FUROSEMIDE 40 MG INJ IV (05:08)
[2017-07-11] MEDS: PANTOPRAZOLE 40 MG INJ IV ×2 (05:08→18:02)
[2017-07-11] MEDS: FENTAnyl (DRIP) 1000 mcg/100mL 100 ML IV ×2 (05:12→16:37)
[2017-07-11 05:26] LABS: ADD MAN DIFF? NO
[2017-07-11 05:27] LABS: BASOPHILS % 0.3 % (0.0-2.0); EOSINOPHILS # 0.4 10^3/ul (0.0-0.5); EOSINOPHILS % 5.5 % (0.0-7.0); HEMATOCRIT 25.9 % (42.0-52.0); HEMOGLOBIN 8.9 g/dl (14.0-18.0); LYMPHOCYTES # 0.8 10^3/ul (0.8-2.9); LYMPHOCYTES % 9.8 % (15.0-51.0); MEAN CORPUSCULAR HEMOGLOBIN 31.7 pg (29.0-33.0); MEAN CORPUSCULAR HGB CONC 34.4 g/dl (32.0-37.0); MEAN CORPUSCULAR VOLUME 92.2 fl (82.0-101.0); MEAN PLATELET VOLUME 10.5 fl (7.4-10.4); MONOCYTE # 0.7 10^3/ul (0.3-0.9); MONOCYTES % 9.3 % (0.0-11.0); NEUTROPHIL # 5.9 10^3/ul (1.6-7.5); NEUTROPHILS % 74.5 % (39.0-77.0); PLATELET COUNT 207 10^3/UL (140-415); RED BLOOD COUNT 2.81 10^6/ul (4.70-6.10); RED CELL DISTRIBUTION WIDTH 14.1 % (11.5-14.5)
[2017-07-11 05:27] LABS: WHITE BLOOD COUNT 7.9 10^3/ul (4.8-10.8)
[2017-07-11 05:43] LABS: MAGNESIUM 2.2 mg/dl (1.7-2.5)
[2017-07-11 05:51] LABS: ALANINE AMINOTRANSFERASE 72 IU/L (13-69); ALBUMIN 2.7 g/dl (3.3-4.9); ALBUMIN/GLOBULIN RATIO 0.96; ALKALINE PHOSPHATASE 183 IU/L (42-121); ANION GAP 13 (8-16); ASPARTATE AMINO TRANSFERASE 66 IU/L (15-46); BILIRUBIN,INDIRECT 0.2 mg/dl (0-1.1); BILIRUBIN,TOTAL 0.2 mg/dl (0.2-1.3); BLOOD UREA NITROGEN 16 mg/dl (7-20); CALCIUM 8.2 mg/dl (8.4-10.2); CARBON DIOXIDE 28 mmol/L (21-31); CHLORIDE 102 mmol/L (97-110); CREATININE 0.67 mg/dl (0.61-1.24); GLUCOSE 107 mg/dl (70-220); POTASSIUM 3.4 mmol/L (3.5-5.1); SODIUM 140 mmol/L (135-144); TOTAL PROTEIN 5.5 g/dl (6.1-8.1)
[2017-07-11 05:52] LABS: B-TYPE NATRIURETIC PEPTIDE 1280 PG/ML (0-125)
[2017-07-11 08:35] LABS: AADO2 Arterial 99.8 mmHg (7.0-24.0); Allen Test ACCEPTAB; Arterial Base Excess 5.2 mmol/L (-3.0-3); Arterial Blood Gas Oxygen Sat 93.8 mmHG (95.0-98.0); Arterial COHb 0.3 % (0.0-3.0); Arterial Fraction of Oxyhgb 93.2 % (93.0-99.0); Arterial MetHb 0.3 % (0.0-1.5); Arterial Total Hemglobin 10.5 g/dl (12.0-18.0); Arterial pCO2 39.6 mmhg (35-45); MODE VENT - AC; Site Right Radial
[2017-07-11] MEDS: ASPIRIN 81 MG TAB NGT (09:07)
[2017-07-11] MEDS: CEFEPIME 1GM/50 ML (PMX) 50 ML IVPB ×2 (09:07→20:53)
[2017-07-11] MEDS: ENOXAPARIN 40 MG/0.4 ML SYG SC (09:08)
[2017-07-11] MEDS: TICAGRELOR 90 MG TABLET PO ×2 (09:08→20:54)
[2017-07-11 09:13] LABS: VANCOMYCIN,TROUGH 11.5 ug/ml (10.0-20.0)
[2017-07-11] MEDS: DEXMEDETOMIDINE HCL 200 MCG in SOD CHLORIDE 0.9% 48 ML IV ×3 (10:50→20:44)
[2017-07-11] MEDS: LORAZEPAM 2 MG INJ IV (11:00)
[2017-07-11] MEDS: POTASSIUM CHLORIDE 20 MEQ POWDER FOR ORAL SOLN NGT (16:44)
[2017-07-11] MEDS: ACETAMINOPHEN 325 MG TAB PO (16:44)
[2017-07-11] MEDS: ATORVASTATIN 20 MG TAB PO (20:53)
[2017-07-11] MEDS: DOCUSATE SODIUM 10 MG/ML (10ML CUP) NGT (20:53)
[2017-07-12] MEDS: VANCOMYCIN 1 GM 250 ML IVPB ×2 (00:58→10:23)
[2017-07-12] MEDS: FENTAnyl (DRIP) 1000 mcg/100mL 100 ML IV ×2 (01:19→13:34)
[2017-07-12] MEDS: DEXMEDETOMIDINE HCL 200 MCG in SOD CHLORIDE 0.9% 48 ML IV ×4 (01:52→08:55)
[2017-07-12] MEDS: PROPOFOL 100 ML IV ×3 (04:07→18:10)
[2017-07-12 05:42] LABS: ADD MAN DIFF? NO
[2017-07-12 05:51] LABS: WHITE BLOOD COUNT 8.7 10^3/ul (4.8-10.8)
[2017-07-12 05:51] LABS: BASOPHILS % 0.3 % (0.0-2.0); EOSINOPHILS # 0.4 10^3/ul (0.0-0.5); EOSINOPHILS % 4.4 % (0.0-7.0); HEMATOCRIT 26.6 % (42.0-52.0); HEMOGLOBIN 8.9 g/dl (14.0-18.0); LYMPHOCYTES # 1.1 10^3/ul (0.8-2.9); LYMPHOCYTES % 12.7 % (15.0-51.0); MEAN CORPUSCULAR HEMOGLOBIN 31.2 pg (29.0-33.0); MEAN CORPUSCULAR HGB CONC 33.5 g/dl (32.0-37.0); MEAN CORPUSCULAR VOLUME 93.3 fl (82.0-101.0); MEAN PLATELET VOLUME 10.8 fl (7.4-10.4); MONOCYTE # 0.6 10^3/ul (0.3-0.9); MONOCYTES % 7.2 % (0.0-11.0); NEUTROPHIL # 6.5 10^3/ul (1.6-7.5); NEUTROPHILS % 74.5 % (39.0-77.0); PLATELET COUNT 285 10^3/UL (140-415); RED BLOOD COUNT 2.85 10^6/ul (4.70-6.10); RED CELL DISTRIBUTION WIDTH 14.3 % (11.5-14.5)
[2017-07-12] MEDS: PANTOPRAZOLE 40 MG INJ IV ×2 (06:04→18:11)
[2017-07-12 06:28] LABS: B-TYPE NATRIURETIC PEPTIDE 833 PG/ML (0-125)
[2017-07-12 06:40] LABS: ALANINE AMINOTRANSFERASE 65 IU/L (13-69); ALBUMIN 3.1 g/dl (3.3-4.9); ALBUMIN/GLOBULIN RATIO 0.86; ALKALINE PHOSPHATASE 216 IU/L (42-121); ANION GAP 13 (8-16); ASPARTATE AMINO TRANSFERASE 80 IU/L (15-46); BILIRUBIN,INDIRECT 0.1 mg/dl (0-1.1); BILIRUBIN,TOTAL 0.1 mg/dl (0.2-1.3); BLOOD UREA NITROGEN 23 mg/dl (7-20); CALCIUM 8.8 mg/dl (8.4-10.2); CARBON DIOXIDE 29 mmol/L (21-31); CHLORIDE 105 mmol/L (97-110); CHOLESTEROL 136 mg/dl (100-200); CREATININE 0.78 mg/dl (0.61-1.24); GLUCOSE 122 mg/dl (70-220); HDL CHOLESTEROL 15 mg/dl (28-71); LDL CHOLESTEROL,CALCULATED 60 mg/dl; MAGNESIUM 2.3 mg/dl (1.7-2.5); POTASSIUM 3.7 mmol/L (3.5-5.1); SODIUM 143 mmol/L (135-144); TOTAL PROTEIN 6.7 g/dl (6.1-8.1); TRIGLYCERIDES 306 mg/dl (0-149)
[2017-07-12] MEDS ORDERED: ETOMIDATE 20 MG INJ (07:00)
[2017-07-12] MEDS ORDERED: SUCCINYLCHOLINE CHLORIDE 100 MG/5 ML SYG IV (07:00)
[2017-07-12 08:15] LABS: AADO2 Arterial 93.4 mmHg (7.0-24.0); Allen Test ACCEPTAB; Arterial Base Excess 2.9 mmol/L (-3.0-3); Arterial Blood Gas Oxygen Sat 95.2 mmHG (95.0-98.0); Arterial COHb 0.3 % (0.0-3.0); Arterial Fraction of Oxyhgb 94.7 % (93.0-99.0); Arterial HCO3 26.9 mmol/L (22.0-26.0); Arterial MetHb 0.2 % (0.0-1.5); Arterial Total Hemglobin 9.3 g/dl (12.0-18.0); Arterial pCO2 38.6 mmhg (35-45); MODE VENT - AC; Site Right Radial
[2017-07-12] MEDS: ASPIRIN 81 MG TAB NGT (09:03)
[2017-07-12] MEDS: DOCUSATE SODIUM 10 MG/ML (10ML CUP) NGT ×2 (09:03→20:41)
[2017-07-12] MEDS: ENOXAPARIN 40 MG/0.4 ML SYG SC (09:06)
[2017-07-12] MEDS: CEFEPIME 1GM/50 ML (PMX) 50 ML IVPB (09:07)
[2017-07-12] MEDS: FUROSEMIDE 40 MG INJ IV (09:07)
[2017-07-12] MEDS: TICAGRELOR 90 MG TABLET PO ×2 (09:09→20:46)
[2017-07-12 11:33] LABS: AADO2 Arterial 109.7 mmHg (7.0-24.0); Allen Test ACCEPTAB; Arterial Base Excess 5.6 mmol/L (-3.0-3); Arterial Blood Gas Oxygen Sat 91.4 mmHG (95.0-98.0); Arterial COHb 0.2 % (0.0-3.0); Arterial HCO3 29.1 mmol/L (22.0-26.0); Arterial MetHb 0.2 % (0.0-1.5); Arterial Total Hemglobin 10.6 g/dl (12.0-18.0); Arterial pCO2 38.1 mmhg (35-45); Blood Gas PS 10; MODE VENT - CPAP; Site Left Radial
[2017-07-12] MEDS ORDERED: ALBUTEROL/IPRATROPIUM (NEB) 3 ML AMP (11:56)
[2017-07-12] MEDS ORDERED: RACEPINEPHRINE 2.25%(NEB) 0.5 ML AMP (11:56)
[2017-07-12] MEDS: RACEPINEPHRINE 2.25%(NEB) 0.5 ML AMP HHN (12:00)
[2017-07-12] MEDS: ATORVASTATIN 20 MG TAB PO (20:45)
[2017-07-13] MEDS: FENTAnyl (DRIP) 1000 mcg/100mL 100 ML IV ×3 (00:01→20:52)
[2017-07-13] MEDS: PROPOFOL 100 ML IV ×4 (04:11→12:17)
[2017-07-13 05:12] LABS: ADD MAN DIFF? NO
[2017-07-13 05:18] LABS: BASOPHILS % 0.3 % (0.0-2.0); EOSINOPHILS # 0.4 10^3/ul (0.0-0.5); HEMATOCRIT 27.6 % (42.0-52.0); LYMPHOCYTES % 11.5 % (15.0-51.0); MEAN CORPUSCULAR HEMOGLOBIN 31.1 pg (29.0-33.0); MEAN CORPUSCULAR HGB CONC 32.6 g/dl (32.0-37.0); MEAN CORPUSCULAR VOLUME 95.5 fl (82.0-101.0); MEAN PLATELET VOLUME 11.1 fl (7.4-10.4); MONOCYTE # 0.6 10^3/ul (0.3-0.9); MONOCYTES % 6.1 % (0.0-11.0); NEUTROPHIL # 6.9 10^3/ul (1.6-7.5); NEUTROPHILS % 77.4 % (39.0-77.0); PLATELET COUNT 342 10^3/UL (140-415); RED BLOOD COUNT 2.89 10^6/ul (4.70-6.10); RED CELL DISTRIBUTION WIDTH 14.4 % (11.5-14.5)
[2017-07-13 06:12] LABS: ALANINE AMINOTRANSFERASE 142 IU/L (13-69); ALBUMIN 3.1 g/dl (3.3-4.9); ALBUMIN/GLOBULIN RATIO 0.86; ALKALINE PHOSPHATASE 288 IU/L (42-121); ANION GAP 13 (8-16); ASPARTATE AMINO TRANSFERASE 240 IU/L (15-46); BILIRUBIN,INDIRECT 0.2 mg/dl (0-1.1); BILIRUBIN,TOTAL 0.2 mg/dl (0.2-1.3); BLOOD UREA NITROGEN 26 mg/dl (7-20); CALCIUM 8.7 mg/dl (8.4-10.2); CARBON DIOXIDE 32 mmol/L (21-31); CHLORIDE 106 mmol/L (97-110); GLUCOSE 153 mg/dl (70-220); MAGNESIUM 2.4 mg/dl (1.7-2.5); POTASSIUM 3.6 mmol/L (3.5-5.1); SODIUM 147 mmol/L (135-144); TOTAL PROTEIN 6.7 g/dl (6.1-8.1)
[2017-07-13] MEDS: PANTOPRAZOLE 40 MG INJ IV ×2 (06:13→17:48)
[2017-07-13] MEDS: LORAZEPAM 2 MG INJ IV (06:40)
[2017-07-13 08:10] LABS: AADO2 Arterial 112.9 mmHg (7.0-24.0); Allen Test ACCEPTAB; Arterial Base Excess 3.1 mmol/L (-3.0-3); Arterial Blood Gas Oxygen Sat 98.2 mmHG (95.0-98.0); Arterial COHb 0.3 % (0.0-3.0); Arterial Fraction of Oxyhgb 97.7 % (93.0-99.0); Arterial HCO3 26.8 mmol/L (22.0-26.0); Arterial MetHb 0.2 % (0.0-1.5); Arterial Total Hemglobin 10.2 g/dl (12.0-18.0); Arterial pCO2 37.6 mmhg (35-45); MODE VENT - AC; Site Right Radial
[2017-07-13] MEDS: ASPIRIN 81 MG TAB NGT (09:17)
[2017-07-13] MEDS: DOCUSATE SODIUM 10 MG/ML (10ML CUP) NGT ×2 (09:17→20:38)
[2017-07-13] MEDS: FUROSEMIDE 40 MG INJ IV (09:17)
[2017-07-13] MEDS: LISINOPRIL 5 MG TAB NGT ×2 (09:17→20:42)
[2017-07-13] MEDS: POTASSIUM CHLORIDE 20 MEQ POWDER FOR ORAL SOLN NGT (09:17)
[2017-07-13] MEDS: TICAGRELOR 90 MG TABLET PO ×2 (09:21→20:43)
[2017-07-13] MEDS: ENOXAPARIN 40 MG/0.4 ML SYG SC (09:30)
[2017-07-13] MEDS: MIDAZOLAM (DRIP) 50 mg/50 mL 50 ML IV (12:18)
[2017-07-13] MEDS: QUETIAPINE 100 MG TAB NGT (12:42)
[2017-07-13] MEDS: ACETAMINOPHEN 325 MG TAB PO (19:02)
[2017-07-13] MEDS: ATORVASTATIN 20 MG TAB PO (20:42)
[2017-07-14 05:03] LABS: ADD MAN DIFF? NO
[2017-07-14 05:07] LABS: BASOPHILS % 0.3 % (0.0-2.0); EOSINOPHILS # 0.1 10^3/ul (0.0-0.5); HEMATOCRIT 28.7 % (42.0-52.0); HEMOGLOBIN 9.5 g/dl (14.0-18.0); LYMPHOCYTES # 1.1 10^3/ul (0.8-2.9); LYMPHOCYTES % 10.4 % (15.0-51.0); MEAN CORPUSCULAR HEMOGLOBIN 31.8 pg (29.0-33.0); MEAN CORPUSCULAR HGB CONC 33.1 g/dl (32.0-37.0); MEAN PLATELET VOLUME 11.1 fl (7.4-10.4); MONOCYTE # 0.6 10^3/ul (0.3-0.9); MONOCYTES % 6.3 % (0.0-11.0); NEUTROPHIL # 8.3 10^3/ul (1.6-7.5); NEUTROPHILS % 81.3 % (39.0-77.0); PLATELET COUNT 458 10^3/UL (140-415); RED BLOOD COUNT 2.99 10^6/ul (4.70-6.10); RED CELL DISTRIBUTION WIDTH 14.6 % (11.5-14.5)
[2017-07-14 05:07] LABS: WHITE BLOOD COUNT 10.2 10^3/ul (4.8-10.8)
[2017-07-14] MEDS: PANTOPRAZOLE 40 MG INJ IV ×2 (05:44→18:10)
[2017-07-14 05:46] LABS: ALANINE AMINOTRANSFERASE 500 IU/L (13-69); ALBUMIN 3.3 g/dl (3.3-4.9); ALBUMIN/GLOBULIN RATIO 0.84; ALKALINE PHOSPHATASE 445 IU/L (42-121); ANION GAP 14 (8-16); BILIRUBIN,INDIRECT 0.4 mg/dl (0-1.1); BILIRUBIN,TOTAL 0.4 mg/dl (0.2-1.3); BLOOD UREA NITROGEN 21 mg/dl (7-20); CALCIUM 9.1 mg/dl (8.4-10.2); CARBON DIOXIDE 33 mmol/L (21-31); CHLORIDE 109 mmol/L (97-110); GLUCOSE 183 mg/dl (70-220); MAGNESIUM 2.4 mg/dl (1.7-2.5); SODIUM 152 mmol/L (135-144); TOTAL PROTEIN 7.2 g/dl (6.1-8.1)
[2017-07-14] MEDS: MIDAZOLAM (DRIP) 50 mg/50 mL 50 ML IV (05:47)
[2017-07-14 05:50] LABS: B-TYPE NATRIURETIC PEPTIDE 2190 PG/ML (0-125)
[2017-07-14 05:55] LABS: ASPARTATE AMINO TRANSFERASE 877 IU/L (15-46)
[2017-07-14 08:20] LABS: PHOSPHORUS 3.1 mg/dl (2.5-4.9)
[2017-07-14 08:34] LABS: AADO2 Arterial 88.7 mmHg (7.0-24.0); Allen Test ACCEPTAB; Arterial Base Excess 4.7 mmol/L (-3.0-3); Arterial COHb 0.3 % (0.0-3.0); Arterial Fraction of Oxyhgb 95.6 % (93.0-99.0); Arterial HCO3 28.3 mmol/L (22.0-26.0); Arterial MetHb 0.1 % (0.0-1.5); Arterial Total Hemglobin 10.7 g/dl (12.0-18.0); Arterial pCO2 38.2 mmhg (35-45); MODE VENT - AC; Site Right Radial
[2017-07-14] MEDS: TICAGRELOR 90 MG TABLET PO ×2 (09:16→21:23)
[2017-07-14] MEDS: ENOXAPARIN 40 MG/0.4 ML SYG SC (09:16)
[2017-07-14] MEDS: ASPIRIN 81 MG TAB NGT (09:17)
[2017-07-14] MEDS: FUROSEMIDE 40 MG INJ IV (09:17)
[2017-07-14] MEDS: LISINOPRIL 5 MG TAB NGT ×2 (09:17→21:00)
[2017-07-14] MEDS: QUETIAPINE 100 MG TAB NGT (09:17)
[2017-07-14] MEDS: DOCUSATE SODIUM 10 MG/ML (10ML CUP) NGT ×2 (09:17→21:25)
[2017-07-14] MEDS: FENTAnyl (DRIP) 1000 mcg/100mL 100 ML IV (09:47)
[2017-07-14 14:00] LABS: AADO2 Arterial 106.4 mmHg (7.0-24.0); Allen Test ACCEPTAB; Arterial Blood Gas Oxygen Sat 94.2 mmHG (95.0-98.0); Arterial COHb 0.3 % (0.0-3.0); Arterial Fraction of Oxyhgb 93.8 % (93.0-99.0); Arterial HCO3 29.7 mmol/L (22.0-26.0); Arterial MetHb 0.1 % (0.0-1.5); Arterial Total Hemglobin 11.6 g/dl (12.0-18.0); Arterial pCO2 35.4 mmhg (35-45); Blood Gas PS 10; MODE VENT - CPAP; Site Right Radial
[2017-07-14] MEDS: PROPOFOL 100 ML IV (18:06)
[2017-07-15] MEDS: FENTAnyl (DRIP) 1000 mcg/100mL 100 ML IV ×2 (00:18→17:17)
[2017-07-15] MEDS: MIDAZOLAM (DRIP) 50 mg/50 mL 50 ML IV (04:21)
[2017-07-15] MEDS: PANTOPRAZOLE 40 MG INJ IV ×2 (06:00→17:36)
[2017-07-15 07:08] LABS: ADD MAN DIFF? NO
[2017-07-15 07:09] LABS: WHITE BLOOD COUNT 12.1 10^3/ul (4.8-10.8)
[2017-07-15 07:09] LABS: BASOPHIL # 0.1 10^3/ul (0.0-0.1); BASOPHILS % 0.4 % (0.0-2.0); EOSINOPHILS # 0.1 10^3/ul (0.0-0.5); EOSINOPHILS % 0.8 % (0.0-7.0); HEMATOCRIT 32.1 % (42.0-52.0); HEMOGLOBIN 10.3 g/dl (14.0-18.0); LYMPHOCYTES # 1.5 10^3/ul (0.8-2.9); LYMPHOCYTES % 12.3 % (15.0-51.0); MEAN CORPUSCULAR HGB CONC 32.1 g/dl (32.0-37.0); MEAN CORPUSCULAR VOLUME 96.7 fl (82.0-101.0); MEAN PLATELET VOLUME 11.1 fl (7.4-10.4); MONOCYTES % 8.1 % (0.0-11.0); NEUTROPHIL # 9.5 10^3/ul (1.6-7.5); NEUTROPHILS % 77.8 % (39.0-77.0); PLATELET COUNT 603 10^3/UL (140-415); RED BLOOD COUNT 3.32 10^6/ul (4.70-6.10); RED CELL DISTRIBUTION WIDTH 14.5 % (11.5-14.5)
[2017-07-15 07:29] LABS: ALANINE AMINOTRANSFERASE 510 IU/L (13-69); ALBUMIN 3.4 g/dl (3.3-4.9); ALKALINE PHOSPHATASE 401 IU/L (42-121); ANION GAP 18 (8-16); ASPARTATE AMINO TRANSFERASE 576 IU/L (15-46); BILIRUBIN,INDIRECT 0.3 mg/dl (0-1.1); BILIRUBIN,TOTAL 0.3 mg/dl (0.2-1.3); BLOOD UREA NITROGEN 26 mg/dl (7-20); CALCIUM 9.4 mg/dl (8.4-10.2); CARBON DIOXIDE 30 mmol/L (21-31); CHLORIDE 109 mmol/L (97-110); CREATININE 0.78 mg/dl (0.61-1.24); GLUCOSE 166 mg/dl (70-220); SODIUM 152 mmol/L (135-144); TOTAL PROTEIN 7.1 g/dl (6.1-8.1)
[2017-07-15 07:30] LABS: ALBUMIN/GLOBULIN RATIO 0.91; MAGNESIUM 2.5 mg/dl (1.7-2.5)
[2017-07-15 07:30] LABS: PHOSPHORUS 3.4 mg/dl (2.5-4.9)
[2017-07-15] MEDS: PROPOFOL 100 ML IV ×2 (07:42→18:30)
[2017-07-15 08:23] LABS: AADO2 Arterial 99.3 mmHg (7.0-24.0); Arterial Base Excess 3.4 mmol/L (-3.0-3); Arterial Blood Gas Oxygen Sat 95.1 mmHG (95.0-98.0); Arterial COHb 0.3 % (0.0-3.0); Arterial Fraction of Oxyhgb 94.6 % (93.0-99.0); Arterial HCO3 26.5 mmol/L (22.0-26.0); Arterial MetHb 0.2 % (0.0-1.5); Arterial pCO2 34.9 mmhg (35-45); Blood Gas PS 10; MODE VENT - SIMV; Site Right Brachial
[2017-07-15] MEDS: QUETIAPINE 100 MG TAB NGT (08:37)
[2017-07-15] MEDS: ASPIRIN 81 MG TAB NGT (08:37)
[2017-07-15] MEDS: LISINOPRIL 5 MG TAB NGT ×2 (08:37→20:49)
[2017-07-15] MEDS: FUROSEMIDE 40 MG INJ IV (08:37)
[2017-07-15] MEDS: ENOXAPARIN 40 MG/0.4 ML SYG SC (08:48)
[2017-07-15] MEDS: TICAGRELOR 90 MG TABLET PO ×2 (08:48→20:59)
[2017-07-15] MEDS: DOCUSATE SODIUM 10 MG/ML (10ML CUP) NGT ×2 (08:48→20:46)
[2017-07-15 11:53] LABS: AADO2 Arterial 96.3 mmHg (7.0-24.0); Allen Test ACCEPTAB; Arterial Base Excess 5.5 mmol/L (-3.0-3); Arterial Blood Gas Oxygen Sat 96.1 mmHG (95.0-98.0); Arterial COHb 0.3 % (0.0-3.0); Arterial Fraction of Oxyhgb 95.7 % (93.0-99.0); Arterial HCO3 27.6 mmol/L (22.0-26.0); Arterial MetHb 0.1 % (0.0-1.5); Arterial Total Hemglobin 14.3 g/dl (12.0-18.0); Arterial pCO2 32.7 mmhg (35-45); Blood Gas PS 10; MODE VENT - CPAP; Site Right Radial
[2017-07-15] MEDS: LORAZEPAM 2 MG INJ IV (12:11)
[2017-07-15] MEDS: ACETAMINOPHEN 325 MG TAB PO (17:36)
[2017-07-15] MEDS: DEXTROSE 5% 1,000 ML IV (18:30)
[2017-07-15] MEDS: PIPER-TAZO 3.375 GM IV (PMX) 100 ML IVPB (18:34)
[2017-07-16] MEDS: PIPER-TAZO 3.375 GM IV (PMX) 100 ML IVPB ×4 (00:10→17:27)
[2017-07-16] MEDS: MIDAZOLAM (DRIP) 50 mg/50 mL 50 ML IV ×2 (00:36→18:11)
[2017-07-16] MEDS: FENTAnyl (DRIP) 1000 mcg/100mL 100 ML IV ×2 (03:23→15:13)
[2017-07-16 05:03] LABS: ADD MAN DIFF? NO
[2017-07-16 05:12] LABS: BASOPHIL # 0.1 10^3/ul (0.0-0.1); BASOPHILS % 0.4 % (0.0-2.0); EOSINOPHILS # 0.1 10^3/ul (0.0-0.5); EOSINOPHILS % 0.9 % (0.0-7.0); HEMATOCRIT 32.9 % (42.0-52.0); HEMOGLOBIN 10.3 g/dl (14.0-18.0); LYMPHOCYTES # 1.6 10^3/ul (0.8-2.9); LYMPHOCYTES % 13.2 % (15.0-51.0); MEAN CORPUSCULAR HEMOGLOBIN 30.5 pg (29.0-33.0); MEAN CORPUSCULAR HGB CONC 31.3 g/dl (32.0-37.0); MEAN CORPUSCULAR VOLUME 97.3 fl (82.0-101.0); MEAN PLATELET VOLUME 11.3 fl (7.4-10.4); MONOCYTES % 8.3 % (0.0-11.0); NEUTROPHIL # 9.4 10^3/ul (1.6-7.5); NEUTROPHILS % 76.8 % (39.0-77.0); PLATELET COUNT 675 10^3/UL (140-415); RED BLOOD COUNT 3.38 10^6/ul (4.70-6.10); RED CELL DISTRIBUTION WIDTH 14.6 % (11.5-14.5)
[2017-07-16 05:12] LABS: WHITE BLOOD COUNT 12.2 10^3/ul (4.8-10.8)
[2017-07-16 05:30] LABS: ANION GAP 16 (8-16); BLOOD UREA NITROGEN 34 mg/dl (7-20); CALCIUM 9.5 mg/dl (8.4-10.2); CARBON DIOXIDE 32 mmol/L (21-31); CHLORIDE 109 mmol/L (97-110); CREATININE 0.99 mg/dl (0.61-1.24); GLUCOSE 210 mg/dl (70-220); SODIUM 153 mmol/L (135-144)
[2017-07-16] MEDS: PANTOPRAZOLE 40 MG INJ IV ×2 (06:15→17:27)
[2017-07-16] MEDS: PROPOFOL 100 ML IV ×2 (07:55→18:10)
[2017-07-16] MEDS: QUETIAPINE 100 MG TAB NGT (09:01)
[2017-07-16] MEDS: ACETAMINOPHEN 325 MG TAB PO (09:02)
[2017-07-16] MEDS: LISINOPRIL 5 MG TAB NGT ×2 (09:02→21:20)
[2017-07-16] MEDS: ENOXAPARIN 40 MG/0.4 ML SYG SC (09:03)
[2017-07-16] MEDS: DOCUSATE SODIUM 10 MG/ML (10ML CUP) NGT ×2 (09:04→21:00)
[2017-07-16] MEDS: TICAGRELOR 90 MG TABLET PO ×2 (09:04→21:22)
[2017-07-16] MEDS: ASPIRIN 81 MG TAB NGT (09:04)
[2017-07-16] MEDS: DEXTROSE 5% 1,000 ML IV ×2 (10:44→21:19)
[2017-07-16 11:19] LABS: ADD UMIC YES; UR ASCORBIC ACID 20 mg/dL (NEGATIVE); UR BACTERIA FEW /HPF (NONE SEEN); UR BILIRUBIN (Dip) 1+ mg/dL (NEGATIVE); UR BLOOD (Dip) 1+ mg/dL (NEGATIVE); UR CLARITY CLOUDY (CLEAR); UR COLOR AMBER (YELLOW); UR GLUCOSE (Dip) 1+ mg/dL (NEGATIVE); UR KETONES (Dip) NEGATIVE (NEGATIVE); UR LEUKOCYTE ESTERASE (Dip) NEGATIVE Leu/ul (NEGATIVE); UR MUCUS MANY /HPF (NONE SEEN); UR NITRITE (Dip) NEGATIVE (NEGATIVE); UR RBC > 182 /HPF (0-5); UR SPECIFIC GRAVITY (Dip) 1.029 (1.003-1.030); UR TOTAL PROTEIN (Dip) 3+ mg/dl (NEGATIVE); UR UROBILINOGEN (Dip) 2+ mg/dL (NEGATIVE); UR WBC 9 /HPF (0-5)
[2017-07-16] MEDS ORDERED: GLUCOSE GEL 15 GRAM TUBE PO ×2 (11:30)
[2017-07-16] MEDS ORDERED: GLUCOSE GEL 15 GRAM TUBE BUCCAL (11:30)
[2017-07-16] MEDS ORDERED: DEXTROSE 50% 50 ML SYRINGE IV ×2 (11:30)
[2017-07-16] MEDS ORDERED: GLUCAGON 1 MG INJ IM (11:30)
[2017-07-16] MEDS: INSULIN ASPART [NOVOLOG] 3 ML PEN SC ×3 (13:00→21:38)
[2017-07-16 14:36] LABS: PROCALCITONIN 2.08 ng/mL (<0.10)
[2017-07-16] MEDS: ALTEPLASE (CATHFLO) 2 MG INJ CATHETER (15:46)
[2017-07-16 19:08] LABS: ALANINE AMINOTRANSFERASE 441 IU/L (13-69); ALBUMIN 3.5 g/dl (3.3-4.9); ALBUMIN/GLOBULIN RATIO 0.94; ALKALINE PHOSPHATASE 298 IU/L (42-121); ANION GAP 14 (8-16); ASPARTATE AMINO TRANSFERASE 291 IU/L (15-46); BILIRUBIN,INDIRECT 0.5 mg/dl (0-1.1); BILIRUBIN,TOTAL 0.5 mg/dl (0.2-1.3); BLOOD UREA NITROGEN 32 mg/dl (7-20); CALCIUM 8.7 mg/dl (8.4-10.2); CARBON DIOXIDE 29 mmol/L (21-31); CHLORIDE 109 mmol/L (97-110); CREATININE 0.92 mg/dl (0.61-1.24); GLUCOSE 187 mg/dl (70-220); POTASSIUM 3.7 mmol/L (3.5-5.1); SODIUM 148 mmol/L (135-144); TOTAL PROTEIN 7.2 g/dl (6.1-8.1)
[2017-07-16 20:48] LABS: TROPONIN-I 0.124 ng/ml (0.00-0.12)
[2017-07-17] MEDS: FENTAnyl (DRIP) 1000 mcg/100mL 100 ML IV ×2 (00:45→10:45)
[2017-07-17] MEDS: INSULIN ASPART [NOVOLOG] 3 ML PEN SC ×6 (00:54→21:00)
[2017-07-17] MEDS: PIPER-TAZO 3.375 GM IV (PMX) 100 ML IVPB ×4 (00:54→17:16)
[2017-07-17 01:14] LABS: ALANINE AMINOTRANSFERASE 441 IU/L (13-69); ALBUMIN 3.3 g/dl (3.3-4.9); ALBUMIN/GLOBULIN RATIO 0.82; ALKALINE PHOSPHATASE 289 IU/L (42-121); ANION GAP 13 (8-16); ASPARTATE AMINO TRANSFERASE 279 IU/L (15-46); BILIRUBIN,INDIRECT 0.3 mg/dl (0-1.1); BILIRUBIN,TOTAL 0.3 mg/dl (0.2-1.3); BLOOD UREA NITROGEN 30 mg/dl (7-20); CARBON DIOXIDE 29 mmol/L (21-31); CHLORIDE 108 mmol/L (97-110); CREATININE 0.75 mg/dl (0.61-1.24); GLUCOSE 183 mg/dl (70-220); POTASSIUM 3.8 mmol/L (3.5-5.1); SODIUM 146 mmol/L (135-144); TOTAL PROTEIN 7.3 g/dl (6.1-8.1)
[2017-07-17] MEDS: ACCU-CHEK XX (02:00)
[2017-07-17] MEDS: MIDAZOLAM (DRIP) 50 mg/50 mL 50 ML IV (05:10)
[2017-07-17] MEDS: PANTOPRAZOLE 40 MG INJ IV (05:46)
[2017-07-17] MEDS: PROPOFOL 100 ML IV ×2 (06:30→18:30)
[2017-07-17 06:43] LABS: ALANINE AMINOTRANSFERASE 392 IU/L (13-69); ALBUMIN 3.2 g/dl (3.3-4.9); ALBUMIN/GLOBULIN RATIO 0.86; ALKALINE PHOSPHATASE 268 IU/L (42-121); ANION GAP 14 (8-16); ASPARTATE AMINO TRANSFERASE 245 IU/L (15-46); BILIRUBIN,INDIRECT 0.3 mg/dl (0-1.1); BILIRUBIN,TOTAL 0.3 mg/dl (0.2-1.3); BLOOD UREA NITROGEN 26 mg/dl (7-20); CALCIUM 8.6 mg/dl (8.4-10.2); CARBON DIOXIDE 27 mmol/L (21-31); CHLORIDE 109 mmol/L (97-110); CREATININE 0.71 mg/dl (0.61-1.24); GLUCOSE 187 mg/dl (70-220); POTASSIUM 3.8 mmol/L (3.5-5.1); SODIUM 146 mmol/L (135-144); TOTAL PROTEIN 6.9 g/dl (6.1-8.1)
[2017-07-17] MEDS: LISINOPRIL 5 MG TAB NGT ×2 (09:00→21:00)
[2017-07-17] MEDS: QUETIAPINE 100 MG TAB NGT (09:08)
[2017-07-17] MEDS: ASPIRIN 81 MG TAB NGT (09:08)
[2017-07-17] MEDS: DOCUSATE SODIUM 10 MG/ML (10ML CUP) NGT ×2 (09:08→21:14)
[2017-07-17] MEDS: TICAGRELOR 90 MG TABLET PO ×2 (09:09→21:16)
[2017-07-17] MEDS: ENOXAPARIN 40 MG/0.4 ML SYG SC (09:10)
[2017-07-17] MEDS: DEXTROSE 5% 1,000 ML IV (09:11)
[2017-07-17 12:04] LABS: AADO2 Arterial 100.1 mmHg (7.0-24.0); Allen Test ACCEPTAB; Arterial Base Excess 0.1 mmol/L (-3.0-3); Arterial Blood Gas Oxygen Sat 96.1 mmHG (95.0-98.0); Arterial COHb 0.2 % (0.0-3.0); Arterial Fraction of Oxyhgb 95.8 % (93.0-99.0); Arterial HCO3 22.5 mmol/L (22.0-26.0); Arterial MetHb 0.1 % (0.0-1.5); Arterial Total Hemglobin 10.3 g/dl (12.0-18.0); Arterial pCO2 28.8 mmhg (35-45); Blood Gas PS 10; MODE VENT - CPAP; Site Right Radial
[2017-07-17 13:02] LABS: ALBUMIN/GLOBULIN RATIO 0.79; ANION GAP 12 (8-16)
[2017-07-17 13:03] LABS: ALANINE AMINOTRANSFERASE 348 IU/L (13-69); ALBUMIN 3.1 g/dl (3.3-4.9); ALKALINE PHOSPHATASE 249 IU/L (42-121); ASPARTATE AMINO TRANSFERASE 189 IU/L (15-46); BILIRUBIN,INDIRECT 0.4 mg/dl (0-1.1); BILIRUBIN,TOTAL 0.4 mg/dl (0.2-1.3); BLOOD UREA NITROGEN 25 mg/dl (7-20); CALCIUM 8.7 mg/dl (8.4-10.2); CARBON DIOXIDE 28 mmol/L (21-31); CHLORIDE 108 mmol/L (97-110); CREATININE 0.68 mg/dl (0.61-1.24); GLUCOSE 131 mg/dl (70-220); POTASSIUM 3.9 mmol/L (3.5-5.1); SODIUM 144 mmol/L (135-144)
[2017-07-17] MEDS: FUROSEMIDE 20 MG INJ IV (14:51)
[2017-07-17] MEDS: ALBUTEROL/IPRATROPIUM (NEB) 3 ML AMP HHN (15:55)
[2017-07-17 20:32] LABS: ALANINE AMINOTRANSFERASE 313 IU/L (13-69); ALBUMIN 3.4 g/dl (3.3-4.9); ALBUMIN/GLOBULIN RATIO 0.85; ALKALINE PHOSPHATASE 257 IU/L (42-121); ANION GAP 15 (8-16); ASPARTATE AMINO TRANSFERASE 141 IU/L (15-46); BILIRUBIN,INDIRECT 0.5 mg/dl (0-1.1); BILIRUBIN,TOTAL 0.5 mg/dl (0.2-1.3); BLOOD UREA NITROGEN 23 mg/dl (7-20); CALCIUM 9.1 mg/dl (8.4-10.2); CARBON DIOXIDE 28 mmol/L (21-31); CHLORIDE 105 mmol/L (97-110); GLUCOSE 135 mg/dl (70-220); POTASSIUM 3.7 mmol/L (3.5-5.1); SODIUM 144 mmol/L (135-144); TOTAL PROTEIN 7.4 g/dl (6.1-8.1)
[2017-07-17] MEDS: FAMOTIDINE 20 MG TAB NGT (21:14)
[2017-07-18] MEDS: INSULIN ASPART [NOVOLOG] 3 ML PEN SC ×5 (01:00→17:25)
[2017-07-18] MEDS: PIPER-TAZO 3.375 GM IV (PMX) 100 ML IVPB ×3 (01:06→12:38)
[2017-07-18] MEDS: ACCU-CHEK XX (02:00)
[2017-07-18] MEDS: DEXTROSE 5% 1,000 ML IV ×2 (05:22→14:45)
[2017-07-18] MEDS: PROPOFOL 100 ML IV (06:30)
[2017-07-18 06:58] LABS: HEPATITIS B SURFACE ANTIGEN NEGATIVE (NEGATIVE)
[2017-07-18 07:15] LABS: HEPATITIS B SURFACE ANTIBODY NEGATIVE (NEGATIVE)
[2017-07-18 07:16] LABS: HEPATITIS B CORE ANTIBODY NEGATIVE (NEGATIVE); HEPATITIS C VIRAL ANTIBODY NEGATIVE (NEGATIVE)
[2017-07-18] MEDS: DOCUSATE SODIUM 10 MG/ML (10ML CUP) NGT ×2 (08:26→20:46)
[2017-07-18] MEDS: QUETIAPINE 100 MG TAB NGT (08:27)
[2017-07-18] MEDS: ENOXAPARIN 40 MG/0.4 ML SYG SC (08:30)
[2017-07-18] MEDS: TICAGRELOR 90 MG TABLET PO ×2 (08:31→22:23)
[2017-07-18] MEDS: ASPIRIN 81 MG TAB NGT (08:32)
[2017-07-18] MEDS: LISINOPRIL 5 MG TAB NGT ×2 (08:35→21:00)
[2017-07-18] MEDS: ACETAMINOPHEN 325 MG TAB PO ×2 (15:56→22:29)
[2017-07-18] MEDS: FAMOTIDINE 20 MG TAB NGT (20:46)
[2017-07-19] MEDS: OXYCODONE/ACETAMINOPHEN (5/325) TAB PO ×3 (03:37→14:41)
[2017-07-19] MEDS: ASPIRIN 81 MG TAB NGT (08:37)
[2017-07-19] MEDS: DOCUSATE SODIUM 10 MG/ML (10ML CUP) NGT ×2 (08:37→21:00)
[2017-07-19] MEDS: LISINOPRIL 5 MG TAB NGT ×2 (08:39→21:19)
[2017-07-19] MEDS: QUETIAPINE 100 MG TAB NGT (08:39)
[2017-07-19] MEDS: TICAGRELOR 90 MG TABLET PO ×2 (08:40→21:27)
[2017-07-19] MEDS: ENOXAPARIN 40 MG/0.4 ML SYG SC (08:40)
[2017-07-19 09:42] LABS: ADD MAN DIFF? NO
[2017-07-19 09:52] LABS: BASOPHILS % 0.4 % (0.0-2.0); EOSINOPHILS # 0.3 10^3/ul (0.0-0.5); EOSINOPHILS % 3.4 % (0.0-7.0); HEMATOCRIT 29.5 % (42.0-52.0); HEMOGLOBIN 9.7 g/dl (14.0-18.0); LYMPHOCYTES # 1.2 10^3/ul (0.8-2.9); LYMPHOCYTES % 14.6 % (15.0-51.0); MEAN CORPUSCULAR HGB CONC 32.9 g/dl (32.0-37.0); MEAN CORPUSCULAR VOLUME 94.2 fl (82.0-101.0); MEAN PLATELET VOLUME 11.7 fl (7.4-10.4); MONOCYTE # 0.7 10^3/ul (0.3-0.9); MONOCYTES % 8.4 % (0.0-11.0); NEUTROPHIL # 5.8 10^3/ul (1.6-7.5); NEUTROPHILS % 72.8 % (39.0-77.0); PLATELET COUNT 610 10^3/UL (140-415); RED BLOOD COUNT 3.13 10^6/ul (4.70-6.10); RED CELL DISTRIBUTION WIDTH 13.2 % (11.5-14.5)
[2017-07-19 10:02] LABS: HEMOGLOBIN A1C 5.9 % (0-5.9)
[2017-07-19 10:04] LABS: ALANINE AMINOTRANSFERASE 219 IU/L (13-69); ALBUMIN 3.3 g/dl (3.3-4.9); ALKALINE PHOSPHATASE 223 IU/L (42-121); ASPARTATE AMINO TRANSFERASE 93 IU/L (15-46); BILIRUBIN,INDIRECT 0.3 mg/dl (0-1.1); BILIRUBIN,TOTAL 0.3 mg/dl (0.2-1.3)
[2017-07-19 10:08] LABS: ALANINE AMINOTRANSFERASE 215 IU/L (13-69); ALBUMIN 3.5 g/dl (3.3-4.9); ALBUMIN/GLOBULIN RATIO 0.87; ALKALINE PHOSPHATASE 225 IU/L (42-121); ANION GAP 15 (8-16); ASPARTATE AMINO TRANSFERASE 92 IU/L (15-46); BILIRUBIN,INDIRECT 0.3 mg/dl (0-1.1); BILIRUBIN,TOTAL 0.3 mg/dl (0.2-1.3); BLOOD UREA NITROGEN 22 mg/dl (7-20); CALCIUM 9.1 mg/dl (8.4-10.2); CARBON DIOXIDE 25 mmol/L (21-31); CHLORIDE 106 mmol/L (97-110); CREATININE 0.71 mg/dl (0.61-1.24); GLUCOSE 124 mg/dl (70-220); MAGNESIUM 2.4 mg/dl (1.7-2.5); POTASSIUM 3.5 mmol/L (3.5-5.1); SODIUM 142 mmol/L (135-144); TOTAL PROTEIN 7.5 g/dl (6.1-8.1)
[2017-07-19 10:08] LABS: PHOSPHORUS 3.5 mg/dl (2.5-4.9)
[2017-07-19 10:15] LABS: B-TYPE NATRIURETIC PEPTIDE 730 PG/ML (0-125)
[2017-07-19] MEDS: LEVALBUTEROL (NEB) 0.63 MG/3 ML AMP HHN ×2 (16:03→20:49)
[2017-07-19] MEDS: ACETAMINOPHEN 325 MG TAB PO (16:24)
[2017-07-19] MEDS: morphine 4 MG/ML VIAL IV (16:53)
[2017-07-19] MEDS ORDERED: NITROGLYCERIN (SL) 0.4 MG TAB SL (17:00)
[2017-07-19] MEDS: FAMOTIDINE 20 MG TAB NGT (21:16)
[2017-07-20] MEDS: LEVALBUTEROL (NEB) 0.63 MG/3 ML AMP HHN ×4 (01:42→12:26)
[2017-07-20] MEDS: DOCUSATE SODIUM 10 MG/ML (10ML CUP) NGT ×2 (09:00→20:08)
[2017-07-20 09:55] LABS: ALANINE AMINOTRANSFERASE 173 IU/L (13-69); ALBUMIN 3.7 g/dl (3.3-4.9); ALBUMIN/GLOBULIN RATIO 0.97; ALKALINE PHOSPHATASE 232 IU/L (42-121); ANION GAP 19 (8-16); ASPARTATE AMINO TRANSFERASE 79 IU/L (15-46); BILIRUBIN,INDIRECT 0.3 mg/dl (0-1.1); BILIRUBIN,TOTAL 0.3 mg/dl (0.2-1.3); BLOOD UREA NITROGEN 16 mg/dl (7-20); CALCIUM 9.2 mg/dl (8.4-10.2); CARBON DIOXIDE 21 mmol/L (21-31); CHLORIDE 104 mmol/L (97-110); CREATININE 0.67 mg/dl (0.61-1.24); GLUCOSE 130 mg/dl (70-220); MAGNESIUM 2.4 mg/dl (1.7-2.5); PHOSPHORUS 3.8 mg/dl (2.5-4.9); POTASSIUM 3.9 mmol/L (3.5-5.1); SODIUM 140 mmol/L (135-144); TOTAL PROTEIN 7.5 g/dl (6.1-8.1)
[2017-07-20] MEDS: ASPIRIN 81 MG TAB NGT (09:57)
[2017-07-20] MEDS: LISINOPRIL 5 MG TAB NGT ×2 (09:57→20:08)
[2017-07-20] MEDS: QUETIAPINE 100 MG TAB NGT (09:57)
[2017-07-20] MEDS: ENOXAPARIN 40 MG/0.4 ML SYG SC (10:07)
[2017-07-20] MEDS: TICAGRELOR 90 MG TABLET PO ×2 (10:07→20:08)
[2017-07-20] MEDS ORDERED: morphine LIQ (10 MG/5 ML) CUP NGT (15:00)
[2017-07-20] MEDS: OXYCODONE/ACETAMINOPHEN (5/325) TAB PO (20:08)
[2017-07-20] MEDS: LORAZEPAM 2 MG INJ IV (23:36)
[2017-07-21] MEDS: LISINOPRIL 5 MG TAB NGT ×2 (09:00→21:05)
[2017-07-21] MEDS: LORAZEPAM 0.5 MG TAB PO (09:20)
[2017-07-21] MEDS: ASPIRIN 81 MG TAB NGT (09:20)
[2017-07-21] MEDS: DOCUSATE SODIUM 10 MG/ML (10ML CUP) NGT ×2 (09:20→21:06)
[2017-07-21] MEDS: TICAGRELOR 90 MG TABLET PO ×2 (09:21→21:12)
[2017-07-21] MEDS: ENOXAPARIN 40 MG/0.4 ML SYG SC (09:22)
[2017-07-21 09:37] LABS: ALANINE AMINOTRANSFERASE 154 IU/L (13-69); ALBUMIN 3.7 g/dl (3.3-4.9); ALBUMIN/GLOBULIN RATIO 0.88; ALKALINE PHOSPHATASE 231 IU/L (42-121); ANION GAP 16 (8-16); ASPARTATE AMINO TRANSFERASE 82 IU/L (15-46); BILIRUBIN,INDIRECT 0.3 mg/dl (0-1.1); BILIRUBIN,TOTAL 0.3 mg/dl (0.2-1.3); BLOOD UREA NITROGEN 16 mg/dl (7-20); CALCIUM 9.4 mg/dl (8.4-10.2); CARBON DIOXIDE 26 mmol/L (21-31); CHLORIDE 103 mmol/L (97-110); CREATININE 0.71 mg/dl (0.61-1.24); GLUCOSE 134 mg/dl (70-220); MAGNESIUM 2.4 mg/dl (1.7-2.5); SODIUM 141 mmol/L (135-144); TOTAL PROTEIN 7.9 g/dl (6.1-8.1)
[2017-07-21] MEDS: QUETIAPINE 25 MG TAB PO (21:05)
[2017-07-21] MEDS: OXYCODONE/ACETAMINOPHEN (5/325) TAB PO (21:05)
[2017-07-21] MEDS: LORAZEPAM 2 MG INJ IV (22:43)
[2017-07-22] MEDS: morphine 2 MG INJ IV (01:45)
[2017-07-22] MEDS: LORAZEPAM 2 MG INJ IV ×4 (03:10→19:59)
[2017-07-22] MEDS: DIPHENHYDRAMINE 50 MG INJ IV (03:29)
[2017-07-22] MEDS: ALBUTEROL/IPRATROPIUM (NEB) 3 ML AMP HHN (06:50)
[2017-07-22 07:13] LABS: AADO2 Arterial 102.7 mmHg (7.0-24.0); Allen Test ACCEPTAB; Arterial Base Excess -1.2 mmol/L (-3.0-3); Arterial Blood Gas Oxygen Sat 97.1 mmHG (95.0-98.0); Arterial COHb 0.3 % (0.0-3.0); Arterial Fraction of Oxyhgb 96.5 % (93.0-99.0); Arterial HCO3 22.1 mmol/L (22.0-26.0); Arterial MetHb 0.3 % (0.0-1.5); Arterial Total Hemglobin 11.5 g/dl (12.0-18.0); Arterial pCO2 32.4 mmhg (35-45); MODE 4; Site Right Radial
[2017-07-22] MEDS: LEVALBUTEROL (NEB) 0.63 MG/3 ML AMP HHN (08:22)
[2017-07-22] MEDS: DOCUSATE SODIUM 10 MG/ML (10ML CUP) NGT ×2 (09:23→20:36)
[2017-07-22] MEDS: ASPIRIN 81 MG TAB NGT (09:23)
[2017-07-22] MEDS: LISINOPRIL 5 MG TAB NGT ×2 (09:25→20:48)
[2017-07-22] MEDS: TICAGRELOR 90 MG TABLET PO ×2 (09:39→20:47)
[2017-07-22] MEDS: OXYCODONE/ACETAMINOPHEN (5/325) TAB PO (19:59)
[2017-07-22] MEDS: QUETIAPINE 25 MG TAB PO (20:50)
[2017-07-23] MEDS: OXYCODONE/ACETAMINOPHEN (5/325) TAB PO (03:26)
[2017-07-23] MEDS: SOD CHLORIDE 0.9% 250 ML IV (07:30)
[2017-07-23] MEDS: DOCUSATE SODIUM 10 MG/ML (10ML CUP) NGT ×2 (09:12→21:24)
[2017-07-23] MEDS: TICAGRELOR 90 MG TABLET PO ×2 (09:12→21:28)
[2017-07-23] MEDS: ASPIRIN 81 MG TAB NGT (09:12)
[2017-07-23] MEDS: LISINOPRIL 5 MG TAB NGT ×2 (09:13→21:22)
[2017-07-23] MEDS: ENOXAPARIN 40 MG/0.4 ML SYG SC (09:24)
[2017-07-23] MEDS: QUETIAPINE 25 MG TAB PO (21:23)
[2017-07-24] MEDS: DOCUSATE SODIUM 10 MG/ML (10ML CUP) NGT ×2 (09:49→21:02)
[2017-07-24] MEDS: ASPIRIN 81 MG TAB NGT (09:50)
[2017-07-24] MEDS: LISINOPRIL 5 MG TAB NGT ×2 (09:51→21:00)
[2017-07-24] MEDS: TICAGRELOR 90 MG TABLET PO ×2 (09:57→21:05)
[2017-07-24] MEDS: ENOXAPARIN 40 MG/0.4 ML SYG SC (09:59)
[2017-07-24] MEDS: ACETAMINOPHEN 325 MG TAB PO (15:04)
[2017-07-24] MEDS: QUETIAPINE 25 MG TAB PO (21:03)
[2017-07-25 07:27] LABS: ADD MAN DIFF? NO
[2017-07-25 07:40] LABS: BASOPHIL # 0.1 10^3/ul (0.0-0.1); EOSINOPHILS # 0.2 10^3/ul (0.0-0.5); EOSINOPHILS % 3.9 % (0.0-7.0); HEMATOCRIT 29.8 % (42.0-52.0); LYMPHOCYTES # 1.2 10^3/ul (0.8-2.9); LYMPHOCYTES % 20.2 % (15.0-51.0); MEAN CORPUSCULAR HEMOGLOBIN 31.5 pg (29.0-33.0); MEAN CORPUSCULAR HGB CONC 33.6 g/dl (32.0-37.0); MEAN PLATELET VOLUME 10.4 fl (7.4-10.4); MONOCYTE # 0.7 10^3/ul (0.3-0.9); MONOCYTES % 11.5 % (0.0-11.0); NEUTROPHIL # 3.7 10^3/ul (1.6-7.5); NEUTROPHILS % 62.9 % (39.0-77.0); PLATELET COUNT 613 10^3/UL (140-415); RED BLOOD COUNT 3.17 10^6/ul (4.70-6.10); RED CELL DISTRIBUTION WIDTH 13.8 % (11.5-14.5)
[2017-07-25 07:40] LABS: WHITE BLOOD COUNT 5.9 10^3/ul (4.8-10.8)
[2017-07-25 07:51] LABS: ALANINE AMINOTRANSFERASE 98 IU/L (13-69); ALBUMIN 3.6 g/dl (3.3-4.9); ALBUMIN/GLOBULIN RATIO 0.92; ALKALINE PHOSPHATASE 184 IU/L (42-121); ANION GAP 13 (8-16); ASPARTATE AMINO TRANSFERASE 48 IU/L (15-46); BILIRUBIN,INDIRECT 0.1 mg/dl (0-1.1); BILIRUBIN,TOTAL 0.1 mg/dl (0.2-1.3); BLOOD UREA NITROGEN 13 mg/dl (7-20); CALCIUM 9.7 mg/dl (8.4-10.2); CARBON DIOXIDE 25 mmol/L (21-31); CHLORIDE 102 mmol/L (97-110); CREATININE 0.74 mg/dl (0.61-1.24); GLUCOSE 127 mg/dl (70-220); MAGNESIUM 1.9 mg/dl (1.7-2.5); POTASSIUM 4.3 mmol/L (3.5-5.1); SODIUM 136 mmol/L (135-144); TOTAL PROTEIN 7.5 g/dl (6.1-8.1)
[2017-07-25 07:59] LABS: B-TYPE NATRIURETIC PEPTIDE 630 PG/ML (0-125)
[2017-07-25] MEDS: DOCUSATE SODIUM 10 MG/ML (10ML CUP) NGT (09:00)
[2017-07-25] MEDS: LISINOPRIL 5 MG TAB NGT (09:02)
[2017-07-25] MEDS: ASPIRIN 81 MG TAB NGT (09:03)
[2017-07-25] MEDS: TICAGRELOR 90 MG TABLET PO (09:06)
[2017-07-25] MEDS: ENOXAPARIN 40 MG/0.4 ML SYG SC (09:07)
[2017-07-25] MEDS ORDERED: ATORVASTATIN 10 MG TAB PO (21:00)
== END 2017-07-25 17:51 | disposition home health service (06) | DRG 246 ==
LOC: MS4 07-18 12:00 → TEL 07-21 20:19 → E/R 23:03 → REC 07-05 00:28 → ICU 07-05 05:24
PROC: 027034Z Dilation of Coronary Artery, One Artery with Drug-eluting Intraluminal Device, Percutaneous Approach (ICD-10-PCS; principal; 2017-07-04 03:41)
PROC: 02C03ZZ Extirpation of Matter from Coronary Artery, One Artery, Percutaneous Approach (ICD-10-PCS; 2017-07-04 03:41)
PROC: 5A1955Z Respiratory Ventilation, Greater than 96 Consecutive Hours (ICD-10-PCS; 2017-07-04 03:41)
PROC: 0BH17EZ Insertion of Endotracheal Airway into Trachea, Via Natural or Artificial Opening (ICD-10-PCS; 2017-07-04 03:41)
PROC: 05H633Z Insertion of Infusion Device into Left Subclavian Vein, Percutaneous Approach (ICD-10-PCS; 2017-07-04 03:41)
PROC: 4A023N7 Measurement of Cardiac Sampling and Pressure, Left Heart, Percutaneous Approach (ICD-10-PCS; 2017-07-04 03:41)
PROC: B211YZZ Fluoroscopy of Multiple Coronary Arteries using Other Contrast (ICD-10-PCS; 2017-07-04 03:41)
PROC: 0BH17EZ Insertion of Endotracheal Airway into Trachea, Via Natural or Artificial Opening (ICD-10-PCS; 2017-07-04 03:41)
PROC: 5A1955Z Respiratory Ventilation, Greater than 96 Consecutive Hours (ICD-10-PCS; 2017-07-04 03:41)
DX: I21.29 ST elevation (STEMI) myocardial infarction involving other sites (principal); I63.9 Cerebral infarction, unspecified; I49.01 Ventricular fibrillation; J96.00 Acute respiratory failure, unspecified whether with hypoxia or hypercapnia; K72.00 Acute and subacute hepatic failure without coma; J18.9 Pneumonia, unspecified organism; I50.23 Acute on chronic systolic (congestive) heart failure; G93.1 Anoxic brain damage, not elsewhere classified; I11.0 Hypertensive heart disease with heart failure; I46.2 Cardiac arrest due to underlying cardiac condition; I47.2 Ventricular tachycardia; E87.4 Mixed disorder of acid-base balance; E87.0 Hyperosmolality and hypernatremia; I25.10 Atherosclerotic heart disease of native coronary artery without angina pectoris; I25.82 Chronic total occlusion of coronary artery; E78.5 Hyperlipidemia, unspecified; I25.5 Ischemic cardiomyopathy; J44.9 Chronic obstructive pulmonary disease, unspecified; F17.200 Nicotine dependence, unspecified, uncomplicated; E86.0 Dehydration; I73.9 Peripheral vascular disease, unspecified
CPT/HCPCS: 31500; 36600; 70450; 70551; 71045; 71275; 74018; 74177; 76700; 76937; 80048; 80053; 80061; 80076; 80202; 81001; 82150; 82550; 82553; 82803; 82962; 83036; 83605; 83690; 83735; 83880; 84100; 84145; 84439; 84443; 84484; 85025; 85384; 85610; 85730; 86704; 86706; 86708; 86709; 86803; 87040; 87070; 87081; 87086; 87340; 89220; 92526; 92610; 92941; 93005; 93306; 93308; 93458; 94002; 94003; 94640; 94664; 94770; 95819; 96374; 96375; 97110; 97116; 97163; 97530; 99291-25; J1940